=== PATIENT | female | born 1955 | race Caucasian/White ===

== ENCOUNTER → 2018-09-21 14:36 | Outpatient (CLI) | payer OTHER, SELFPAY | PROVIDERS: PCP Internal Medicine; Visit Provider Internal Medicine | DX: R00.2 Palpitations (principal) | CPT/HCPCS: 36415; 84443 ==

== ENCOUNTER → 2018-09-22 09:00 | Outpatient (CLI) | payer OTHER, SELFPAY | PROVIDERS: PCP Internal Medicine | DX: Z23 Encounter for immunization (principal) | CPT/HCPCS: 90471; 90686 ==

== ENCOUNTER 2018-10-13 13:45 | Outpatient (RCR) | payer OTHER, SELFPAY ==
--- NOTE | 2018-09-18 13:45 | PT.OPPOC ---
Current Diagnoses Pain in unspecified knee (09/28/18) Provider Visit Care Team Role Provider Type RENEA Hills Attending Provider Advanced Technical Sales Director Specialty: Family Practice Address: [address] [place] [address], [id number] Email: [email or web address] Plan Of Care PT-OP-T Assessment and Plan Start: 09/18/18 19:31 Freq: Status: Active Protocol: Document 09/18/18 13:45 DLM Physical Therapy Assessment Rehab Potential Rehabilitation Potential Good Evaluation Complexity Number of Personal Factors/Comorbidities 1-2 Number of Body Systems Impaired 4 or More Clinical Presentation at Evaluation Evolving Impairments Impairments Activity Tolerance Functional Activities Pain Posture ROM Soft Tissue Mobility Strength Other Concerns Barriers to Rehabilitation hx of right knee pain Goals Four Impairment Unable to do HEP due to pain Short Term Goal (STG) She will tolerate light HEP to manage her pain STG Duration 2 weeks Group Home Goal (LTG) She will return to a full HEP including walking without increased pain LTG Duration 6 weeks Three Impairment Decreased right LE strength with pain Short Term Goal (STG) Increase right LE strength to at least 4+/5 STG Duration 3 weeks Group Home Goal (LTG) Increase right LE strength to 5/5 LTG Duration 6 weeks Two Impairment Limited trunk AROM with pain Short Term Goal (STG) Tolerate trunk AROM WNL STG Duration 3 weeks Casino Slot Supervisor Goal (LTG) Trunk AROM WNL without pain for normal bending and reaching LTG Duration 6 weeks One Impairment Pain in low back and right LE, 6/10 Short Term Goal (STG) Resolve radicular pain in right LE STG Duration 3 weeks Casino Slot Supervisor Goal (LTG) Resolve back pain LTG Duration 6 weeks Assessment Summary Assessment Maria Luisa had a flare-up of her back pain and right LE radicular symptoms when she tried to increase her activities in May. The pain is limiting her activities and interfering with her sleep. Clinically she has positive disc symptoms. She also presents with altered trunk alignment and possible muscle strain. She is a good candidate for physical therapy . Physical Therapy Plan Frequency and Duration Frequency of Treatment 2x/Week Duration of Treatment 6 weeks Plan of Care Start Date 09/18/18 Plan of Care End Date 11/29/18 Therapeutic Interventions Therapeutic Interventions Aquatic Therapy Home Exercise Program Manual Therapy Patient/Caregiver Education Self-Care/Home Management Soft Tissue Mobilization Taping Therapeutic Activities Therapeutic Exercises Modalities Cold Pack/Ice Massage Electric Stimulation Hot Packs Ultrasound Next Visit Focus/Plan Next Note Type Treatment Note Next Visit Plan start exercises with extension emphasis and core stabalization, manual therapy Plan of Care Dates Plan of Care Start Date 09/18/18 Plan of Care End Date 11/29/18 Please Sign and Return: I have reviewed this Plan of Care and certify that the skilled therapy services above are required to meet the patient?s needs. Physician Signature Date Printed Name and Credentials Clinical Instructor Signature Printed Name and Credentials
--- NOTE | 2018-09-18 13:45 | PT.OIE ---
Current Diagnoses Pain in unspecified knee (09/28/18) Past Medical History (Last Updated 09/20/18 @ 20:34 by Tara Panda) Duodenal ulcer (Chronic ~1999) Fibroids (Chronic ~2002) Hyperlipidemia (Chronic ~1999) Low back pain (Chronic ~2014) Rosacea (Chronic ~1994) Skin cancer, basal cell (Chronic ~2012) Vision disorder (Chronic) Chicken pox (Resolved) Fractures (Resolved) Measles (Resolved) Mumps (Resolved) Seasonal allergies (Resolved) Shingles (Resolved) Past Surgical History (Last Updated 09/20/18 @ 20:34 by Tara Panda) Anesthesia (Resolved) History of third molar tooth extraction (~1972) History of tonsillectomy (~1961) Status post laparoscopic supracervical hysterectomy (~2002) Provider Visit Care Team Role Provider Type RENEA Hills Attending Provider Advanced Food General Manager Specialty: Family Practice Address: [address] [place] [address] Email: [email or web address] Physical Therapy Initial Evaluation PT-OP-A Visit Information Start: 09/18/18 19:31 Freq: Status: Active Protocol: Document 09/18/18 13:45 DLM Out-Patient Physical Therapy Visit Information Visit Information Visit Type Initial Evaluation Visit Start Time 13:45 Visit Stop Time 14:30 Total Visit Minutes 45 Visit Number 1 Number of SCHEDULE MANAGER Visits 0 Evaluation Information Evaluation Date 09/18/18 PT-OP-B Current Condition Start: 09/18/18 19:31 Freq: Status: Active Protocol: Document 09/18/18 13:45 DLM Current Condition History of Current Condition Onset Date May 2018 Current Complaints Pain in low back and right buttock History of Current Condition She reports her back pain had been doing well since ending Physical Therapy. She attempted to increase her activity and be more aggressive with her exercises at home in May and had a flare-up of her pain. She has not been able to get her pain under control on her own at home. She had to stop her HEP due to the pain. 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 Function- Recreation/Hobbies exercises, walks on treatmill, sewing Current Functional Impairments (Reported) Functional Limitations- ADL's Independent with pain Functional Limitations- Mobility/Gait Independent with pain, the pain limits her distances Functional Limitations- Work/School able to work normal hours but increased pain Functional Limitations- Recreation/ she stopped exercising due to Hobbies her pain Personal Factors Other Personal Factors That May Effect history of knee pain Therapy/Recovery history of GI issues that prevent her from taking most NSAIDS PT-OP-C Subjective Start: 09/18/18 19:31 Freq: Status: Active Protocol: Document 09/18/18 13:45 DLM Patient Questionnaires Lower Extremity Functional Scale LEFS Score 56 LEFS Impairment 20 to 39% Impaired (Score 48- 62) OP-PT Pain Assessment Pain Assessment Grid Paper Pain Assessment Grid Completed Yes Location Right Posterior Hip Intensity 6 Scale Used Numeric (1 - 10) Description Aching Radiating Frequency Daily Pain Duration varies with activity Radiating Location down right LE as low as ankle Pain Aggravating Factors Position Activity Exercise Standing Walking Stair Climbing Bending Pain Alleviating Factors Cold Medication Sitting Changing Position Lower Posterior Back Intensity 4 Scale Used Numeric (1 - 10) Description Aching Frequency Daily Pain Duration varies Radiating Location into right LE as low as her ankle Pain Aggravating Factors Position Standing Walking Bending Pain Alleviating Factors Cold Medication Sitting Changing Position Home Pain Medication Use Pain Medications Used Yes: Tylenol, unable to take most NSAIDS Home Pain Medication Frequency daily Pain Behaviors Pain Behaviors Guarding Wincing Comments Pain Comments has been using tennis ball to help right buttock pain PT-OP-G Mobility & Gait Start: 09/18/18 19:31 Freq: Status: Active Protocol: Document 09/18/18 13:45 DLM OP Mobility Evaluation Bed Mobility Rolling Independent Supine to and from Sit Independent Transfers Sit to Stand pain, independent OP Gait Assessment Gait Gait Assistance Required: Independent Assistive Devices Assistive Device None Gait Deviations General Gait Pattern Within Normal Limits Factors Limiting Gait Function Factors Limiting Gait Function Pain PT-OP-J Posture/Palpation/Skin Start: 09/18/18 19:31 Freq: Status: Active Protocol: Document 09/18/18 13:45 DLM Posture Evaluation Position Standing Evaluation View Posterior Thorax Posture Neutral L-Spine Posture Decreased Lordosis Pelvis Posture (L) Rotated Posterior (L) Iliac Crest Superior Weight Distribution Weight Shifted Left Ankle/Foot Posture (L) Neutral (R) Neutral Palpation Assessment Location lumbar paraspinals Palpation Findings Soft Tissue Tightness Palpation Details no tenderness, mild tightness gluteal area Palpation Findings Soft Tissue Tightness Tenderness Trigger Point Palpation Details pain center right glut, tightness left gluteal area right hamstring Palpation Findings Soft Tissue Tightness Tenderness Trigger Point PT-OP-K Range of Motion Start: 09/18/18 19:31 Freq: Status: Active Protocol: Document 09/18/18 13:45 DLM Lumbar Spine Range of Motion Lumbar Spine Active Percentage Testing Position standing Flexion 100 Extension 100 Rotation Left 100 Rotation Right 100 Lateral Flexion Left 50 Lateral Flexion Right 75 ROM Limitations Soft Tissue Tightness Pain Comments flexion with return to upright : increase right radicular pain trunk ext: decreased pain lateral flexion: pain to left rotation: increased right LE pain with moving to left Hip Goniometric Range of Motion Hip ROM Limitations Hip ROM Limitations Soft Tissue Tightness Comments right hamstring tightness with straight leg raise PT-OP-L Special Tests Start: 09/18/18 19:31 Freq: Status: Active Protocol: Document 09/18/18 13:45 DLM Special Tests Lumbar Spine Special Tests Straight Leg Raise Test Results negative Comments right HS tightness more than left Slump Test Results increased right LE radicular pain PT-OP-M Strength Start: 09/18/18 19:31 Freq: Status: Active Protocol: Document 09/18/18 13:45 DLM Hip Strength Hip Manual Muscle Testing Right Flexion (L2) 4 Good Extension (S1) 4+ Good+ Abduction 4+ Good+ Adduction 4+ Good+ External Rotation 4+ Good+ Internal Rotation 4+ Good+ Reason Not Measured Pain Comments unstable pelvis with resisted hip flexion in sitting, posterior pelvic/lumbar rotation Left Flexion (L2) 5 Normal Extension (S1) 5 Normal Abduction 5 Normal Adduction 5 Normal External Rotation 5 Normal Internal Rotation 5 Normal Knee Strength Knee Manual Muscle Testing Right Flexion (S2) 5 Normal Extension (L3) 5 Normal Left Flexion (S2) 5 Normal Extension (L3) 5 Normal Ankle/Foot Strength Ankle and Foot Manual Muscle Testing Right Dorsiflexion (L4) 5 Normal Plantarflexion (S1) 5 Normal Left Dorsiflexion (L4) 5 Normal Plantarflexion (S1) 5 Normal Toe Strength Toe Manual Muscle Testing Right Great Toe Extension 5 Normal Left Great Toe Extension 5 Normal PT-OP-Q Treatments Start: 09/18/18 19:31 Freq: Status: Active Protocol: Document 09/18/18 13:45 DLM Self-Care/Home Management Treatment Education Other Education reviewed HEP, she has stopped her prior ex due to pain, to resume hamstring stretch in single limb long sitting and prone lying, discussed possible need for anti-inflamm medication to help manage her pain (pt will discuss with her physician) PT-OP-T Assessment and Plan Start: 09/18/18 19:31 Freq: Status: Active Protocol: Document 09/18/18 13:45 DLM Physical Therapy Assessment Rehab Potential Rehabilitation Potential Good Evaluation Complexity Number of Personal Factors/Comorbidities 1-2 Number of Body Systems Impaired 4 or More Clinical Presentation at Evaluation Evolving Impairments Impairments Activity Tolerance Functional Activities Pain Posture ROM Soft Tissue Mobility Strength Other Concerns Barriers to Rehabilitation hx of right knee pain Goals Four Impairment Unable to do HEP due to pain Short Term Goal (STG) She will tolerate light HEP to manage her pain STG Duration 2 weeks Home Health Clinical Liaison Goal (LTG) She will return to a full HEP including walking without increased pain LTG Duration 6 weeks Three Impairment Decreased right LE strength with pain Short Term Goal (STG) Increase right LE strength to at least 4+/5 STG Duration 3 weeks Home Health Clinical Liaison Goal (LTG) Increase right LE strength to 5/5 LTG Duration 6 weeks Two Impairment Limited trunk AROM with pain Short Term Goal (STG) Tolerate trunk AROM WNL STG Duration 3 weeks Home Health Clinical Liaison Goal (LTG) Trunk AROM WNL without pain for normal bending and reaching LTG Duration 6 weeks One Impairment Pain in low back and right LE, 6/10 Short Term Goal (STG) Resolve radicular pain in right LE STG Duration 3 weeks Senior Living Goal (LTG) Resolve back pain LTG Duration 6 weeks Assessment Summary Assessment Maria Luisa had a flare-up of her back pain and right LE radicular symptoms when she tried to increase her activities in May. The pain is limiting her activities and interfering with her sleep. Clinically she has positive disc symptoms. She also presents with altered trunk alignment and possible muscle strain. She is a good candidate for physical therapy . Physical Therapy Plan Frequency and Duration Frequency of Treatment 2x/Week Duration of Treatment 6 weeks Plan of Care Start Date 09/18/18 Plan of Care End Date 11/29/18 Therapeutic Interventions Therapeutic Interventions Aquatic Therapy Home Exercise Program Manual Therapy Patient/Caregiver Education Self-Care/Home Management Soft Tissue Mobilization Taping Therapeutic Activities Therapeutic Exercises Modalities Cold Pack/Ice Massage Electric Stimulation Hot Packs Ultrasound Next Visit Focus/Plan Next Note Type Treatment Note Next Visit Plan start exercises with extension emphasis and core stabilization, manual therapy
--- NOTE | 2018-09-22 13:45 | PT.OTN ---
Current Diagnoses Pain in unspecified knee (09/28/18) Physical Therapy Treatment Note PT-OP-A Visit Information Start: 09/18/18 19:31 Freq: Status: Active Protocol: Document 09/22/18 13:45 DLM Out-Patient Physical Therapy Visit Information Visit Information Visit Type Treatment Note Visit Start Time 13:45 Visit Stop Time 14:45 Total Visit Minutes 60 Visit Number 2/12 Number of GALLEY HAND Visits 0 Evaluation Information Evaluation Date 09/18/18 PT-OP-B Current Condition Start: 09/18/18 19:31 Freq: Status: Active Protocol: Document 09/18/18 13:45 DLM Current Condition History of Current Condition Onset Date May 2018 Current Complaints Pain in low back and right buttock History of Current Condition She reports her back pain had been doing well since ending Physical Therapy. She attempted to increase her activity and be more aggressive with her exercises at home in May and had a flare-up of her pain. She has not been able to get her pain under control on her own at home. She had to stop her HEP due to the pain. 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 Function- Recreation/Hobbies exercises, walks on treatmill, sewing Current Functional Impairments (Reported) Functional Limitations- ADL's Independent with pain Functional Limitations- Mobility/Gait Independent with pain, the pain limits her distances Functional Limitations- Work/School able to work normal hours but increased pain Functional Limitations- Recreation/ she stopped exercising due to Hobbies her pain Personal Factors Other Personal Factors That May Effect history of knee pain Therapy/Recovery history of GI issues that prevent her from taking most NSAIDS PT-OP-C Subjective Start: 09/18/18 19:31 Freq: Status: Active Protocol: Document 09/25/18 13:45 DLM OP-PT Subjective Patient Comments Patient Comments Decreased pain since last visit, 01/10 pain Patient Reported Progress Improving OP-PT Pain Assessment Pain Behaviors Pain Behaviors Guarding Holding Area PT-OP-G Mobility & Gait Start: 09/18/18 19:31 Freq: Status: Active Protocol: Document 09/18/18 13:45 DLM OP Mobility Evaluation Bed Mobility Rolling Independent Supine to and from Sit Independent Transfers Sit to Stand pain, independent OP Gait Assessment Gait Gait Assistance Required: Independent Assistive Devices Assistive Device None Gait Deviations General Gait Pattern Within Normal Limits Factors Limiting Gait Function Factors Limiting Gait Function Pain PT-OP-J Posture/Palpation/Skin Start: 09/18/18 19:31 Freq: Status: Active Protocol: Document 09/18/18 13:45 DLM Posture Evaluation Position Standing Evaluation View Posterior Thorax Posture Neutral L-Spine Posture Decreased Lordosis Pelvis Posture (L) Rotated Posterior (L) Iliac Crest Superior Weight Distribution Weight Shifted Left Ankle/Foot Posture (L) Neutral (R) Neutral Palpation Assessment Location lumbar paraspinals Palpation Findings Soft Tissue Tightness Palpation Details no tenderness, mild tightness gluteal area Palpation Findings Soft Tissue Tightness Tenderness Trigger Point Palpation Details pain center right glut, tightness left gluteal area right hamstring Palpation Findings Soft Tissue Tightness Tenderness Trigger Point PT-OP-K Range of Motion Start: 09/18/18 19:31 Freq: Status: Active Protocol: Document 09/18/18 13:45 DLM Lumbar Spine Range of Motion Lumbar Spine Active Percentage Testing Position standing Flexion 100 Extension 100 Rotation Left 100 Rotation Right 100 Lateral Flexion Left 50 Lateral Flexion Right 75 ROM Limitations Soft Tissue Tightness Pain Comments flexion with return to upright : increase right radicular pain trunk ext: decreased pain lateral flexion: pain to left rotation: increased right LE pain with moving to left Hip Goniometric Range of Motion Hip ROM Limitations Hip ROM Limitations Soft Tissue Tightness Comments right hamstring tightness with straight leg raise PT-OP-L Special Tests Start: 09/18/18 19:31 Freq: Status: Active Protocol: Document 09/18/18 13:45 DLM Special Tests Lumbar Spine Special Tests Straight Leg Raise Test Results negative Comments right HS tightness more than left Slump Test Results increased right LE radicular pain PT-OP-M Strength Start: 09/18/18 19:31 Freq: Status: Active Protocol: Document 09/18/18 13:45 DLM Hip Strength Hip Manual Muscle Testing Right Flexion (L2) 4 Good Extension (S1) 4+ Good+ Abduction 4+ Good+ Adduction 4+ Good+ External Rotation 4+ Good+ Internal Rotation 4+ Good+ Reason Not Measured Pain Comments unstable pelvis with resisted hip flexion in sitting, posterior pelvic/lumbar rotation Left Flexion (L2) 5 Normal Extension (S1) 5 Normal Abduction 5 Normal Adduction 5 Normal External Rotation 5 Normal Internal Rotation 5 Normal Knee Strength Knee Manual Muscle Testing Right Flexion (S2) 5 Normal Extension (L3) 5 Normal Left Flexion (S2) 5 Normal Extension (L3) 5 Normal Ankle/Foot Strength Ankle and Foot Manual Muscle Testing Right Dorsiflexion (L4) 5 Normal Plantarflexion (S1) 5 Normal Left Dorsiflexion (L4) 5 Normal Plantarflexion (S1) 5 Normal Toe Strength Toe Manual Muscle Testing Right Great Toe Extension 5 Normal Left Great Toe Extension 5 Normal PT-OP-Q Treatments Start: 09/18/18 19:31 Freq: Status: Active Protocol: Document 09/25/18 13:45 DLM Therapeutic Exercises Supine Exercises 3 Supine Exercise Name bridging with exercise band around knees Comments stopped due to increased pain 2 Supine Exercise Name Hooklying hip abduction Bilateral L2 exercise band 10 reps 1 Hooklying hip adduction with pillow 10 reps Prone Exercises 1 Prone quad stretch with manual assist Bilateral Sidelying Exercises 1 Sidelying Exercise Name Clamshells Side bilateral Reps/Minutes 5 reps Comments stopped due to pain Manual Therapy Treatment Soft Tissue Mobilization 3 Body Location hamstring Mobilization Type Cross-Friction Strumming Sustained Pressure Intensity/Depth Moderate Body Position Prone Comments left tighter than right this visit 2 Body Location bilateral gluteal area Mobilization Type Strumming Sustained Pressure Trigger Point Release Intensity/Depth Moderate Body Position Prone Comments left tighter than right 1 Body Location lumbar paraspinals Mobilization Type Strumming Sustained Pressure Intensity/Depth Moderate Body Position Prone Self-Care/Home Management Treatment Education Patient Education Home Exercise Program PT-OP-R Modalities Start: 09/18/18 19:31 Freq: Status: Active Protocol: Document 09/25/18 13:45 DLM (Rec: 09/28/18 17:45 DLM [id number]) Electric Stimulation Electric Stimulation Interferential Current (IFC) Body Location lumbosacral Duration (Minutes) 15 Patient Position Prone Combined With Heat/Cold Cold Pack PT-OP-T Assessment and Plan Start: 09/18/18 19:31 Freq: Status: Active Protocol: Document 09/25/18 13:45 DLM (Rec: 09/28/18 17:45 DLM [id number]) Physical Therapy Assessment Impairments Impairments Activity Tolerance Functional Activities Pain Posture ROM Soft Tissue Mobility Strength Goals Four Impairment Unable to do HEP due to pain Short Term Goal (STG) She will tolerate light HEP to manage her pain STG Duration 2 weeks Rolling Chair Pusher Goal (LTG) She will return to a full HEP including walking without increased pain LTG Duration 6 weeks Three Impairment Decreased right LE strength with pain Short Term Goal (STG) Increase right LE strength to at least 4+/5 STG Duration 3 weeks Rolling Chair Pusher Goal (LTG) Increase right LE strength to 5/5 LTG Duration 6 weeks Two Impairment Limited trunk AROM with pain Short Term Goal (STG) Tolerate trunk AROM WNL STG Duration 3 weeks Rolling Chair Pusher Goal (LTG) Trunk AROM WNL without pain for normal bending and reaching LTG Duration 6 weeks One Impairment Pain in low back and right LE, 6/10 Short Term Goal (STG) Resolve radicular pain in right LE STG Duration 3 weeks Penitentiary Goal (LTG) Resolve back pain LTG Duration 6 weeks Progress Towards Goals Progress Towards Goals Progressing Toward Goals Assessment Summary Assessment She reports decreased pain over-all. It continues to be easy to increase her pain with exercises. Will continue to modify her exercises to manage her pain. Good response to Estim. Physical Therapy Plan Frequency and Duration Frequency of Treatment 2x/Week Duration of Treatment 6 weeks Plan of Care Start Date 09/18/18 Plan of Care End Date 11/29/18 Therapeutic Interventions Therapeutic Interventions Aquatic Therapy Home Exercise Program Manual Therapy Patient/Caregiver Education Self-Care/Home Management Soft Tissue Mobilization Taping Therapeutic Activities Therapeutic Exercises Modalities Cold Pack/Ice Massage Electric Stimulation Hot Packs Ultrasound Next Visit Focus/Plan Next Note Type Treatment Note Next Visit Plan continue exercise modification to advance to strengthening ex without increase pain
--- NOTE | 2018-09-25 13:45 | PT.OTN ---
Current Diagnoses Pain in unspecified knee (09/28/18) Physical Therapy Treatment Note PT-OP-A Visit Information Start: 09/18/18 19:31 Freq: Status: Active Protocol: Document 09/25/18 13:45 DLM Out-Patient Physical Therapy Visit Information Visit Information Visit Type Treatment Note Visit Start Time 13:45 Visit Stop Time 14:40 Total Visit Minutes 55 Visit Number 3/12 Number of [employer]ION[employer] ENGINEER Visits 0 Evaluation Information Evaluation Date 09/18/18 PT-OP-B Current Condition Start: 09/18/18 19:31 Freq: Status: Active Protocol: Document 09/18/18 13:45 DLM Current Condition History of Current Condition Onset Date May 2018 Current Complaints Pain in low back and right buttock History of Current Condition She reports her back pain had been doing well since ending Physical Therapy. She attempted to increase her activity and be more aggressive with her exercises at home in May and had a flare-up of her pain. She has not been able to get her pain under control on her own at home. She had to stop her HEP due to the pain. 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 Function- Recreation/Hobbies exercises, walks on treatmill, sewing Current Functional Impairments (Reported) Functional Limitations- ADL's Independent with pain Functional Limitations- Mobility/Gait Independent with pain, the pain limits her distances Functional Limitations- Work/School able to work normal hours but increased pain Functional Limitations- Recreation/ she stopped exercising due to Hobbies her pain Personal Factors Other Personal Factors That May Effect history of knee pain Therapy/Recovery history of GI issues that prevent her from taking most NSAIDS PT-OP-C Subjective Start: 09/18/18 19:31 Freq: Status: Active Protocol: Document 09/25/18 13:45 DLM OP-PT Subjective Patient Comments Patient Comments Decreased pain after Estim and last treatment, taking Celebrex for her pain Patient Reported Progress Improving OP-PT Pain Assessment Pain Behaviors Pain Behaviors Guarding Holding Area PT-OP-G Mobility & Gait Start: 09/18/18 19:31 Freq: Status: Active Protocol: Document 09/18/18 13:45 DLM OP Mobility Evaluation Bed Mobility Rolling Independent Supine to and from Sit Independent Transfers Sit to Stand pain, independent OP Gait Assessment Gait Gait Assistance Required: Independent Assistive Devices Assistive Device None Gait Deviations General Gait Pattern Within Normal Limits Factors Limiting Gait Function Factors Limiting Gait Function Pain PT-OP-J Posture/Palpation/Skin Start: 09/18/18 19:31 Freq: Status: Active Protocol: Document 09/18/18 13:45 DLM Posture Evaluation Position Standing Evaluation View Posterior Thorax Posture Neutral L-Spine Posture Decreased Lordosis Pelvis Posture (L) Rotated Posterior (L) Iliac Crest Superior Weight Distribution Weight Shifted Left Ankle/Foot Posture (L) Neutral (R) Neutral Palpation Assessment Location lumbar paraspinals Palpation Findings Soft Tissue Tightness Palpation Details no tenderness, mild tightness gluteal area Palpation Findings Soft Tissue Tightness Tenderness Trigger Point Palpation Details pain center right glut, tightness left gluteal area right hamstring Palpation Findings Soft Tissue Tightness Tenderness Trigger Point PT-OP-K Range of Motion Start: 09/18/18 19:31 Freq: Status: Active Protocol: Document 09/18/18 13:45 DLM Lumbar Spine Range of Motion Lumbar Spine Active Percentage Testing Position standing Flexion 100 Extension 100 Rotation Left 100 Rotation Right 100 Lateral Flexion Left 50 Lateral Flexion Right 75 ROM Limitations Soft Tissue Tightness Pain Comments flexion with return to upright : increase right radicular pain trunk ext: decreased pain lateral flexion: pain to left rotation: increased right LE pain with moving to left Hip Goniometric Range of Motion Hip ROM Limitations Hip ROM Limitations Soft Tissue Tightness Comments right hamstring tightness with straight leg raise PT-OP-L Special Tests Start: 09/18/18 19:31 Freq: Status: Active Protocol: Document 09/18/18 13:45 DLM Special Tests Lumbar Spine Special Tests Straight Leg Raise Test Results negative Comments right HS tightness more than left Slump Test Results increased right LE radicular pain PT-OP-M Strength Start: 09/18/18 19:31 Freq: Status: Active Protocol: Document 09/18/18 13:45 DLM Hip Strength Hip Manual Muscle Testing Right Flexion (L2) 4 Good Extension (S1) 4+ Good+ Abduction 4+ Good+ Adduction 4+ Good+ External Rotation 4+ Good+ Internal Rotation 4+ Good+ Reason Not Measured Pain Comments unstable pelvis with resisted hip flexion in sitting, posterior pelvic/lumbar rotation Left Flexion (L2) 5 Normal Extension (S1) 5 Normal Abduction 5 Normal Adduction 5 Normal External Rotation 5 Normal Internal Rotation 5 Normal Knee Strength Knee Manual Muscle Testing Right Flexion (S2) 5 Normal Extension (L3) 5 Normal Left Flexion (S2) 5 Normal Extension (L3) 5 Normal Ankle/Foot Strength Ankle and Foot Manual Muscle Testing Right Dorsiflexion (L4) 5 Normal Plantarflexion (S1) 5 Normal Left Dorsiflexion (L4) 5 Normal Plantarflexion (S1) 5 Normal Toe Strength Toe Manual Muscle Testing Right Great Toe Extension 5 Normal Left Great Toe Extension 5 Normal PT-OP-Q Treatments Start: 09/18/18 19:31 Freq: Status: Active Protocol: Document 09/25/18 13:45 DLM Therapeutic Exercises Supine Exercises 4 Supine Exercise Name single knee to chest stetch Side bilateral Reps/Minutes 5 reps each side 3 Supine Exercise Name bridging Comments stopped due to increased pain Prone Exercises 2 Prone Exercise Name hip extension Side bilateral Reps/Minutes 10 reps Comments added core stabalization to prevent compensation with left hip ext Sidelying Exercises 1 Sidelying Exercise Name Clamshells Side bilateral Reps/Minutes 5 reps Comments increased right LE pain with left clamshell Sitting Exercises 1 Sitting Exercise Name hamstring stretch, single limb long sitting Side bilateral Reps/Minutes 3 reps each side Comments seated edge of bed Manual Therapy Treatment Soft Tissue Mobilization 3 Body Location hamstring Mobilization Type Cross-Friction Strumming Sustained Pressure Intensity/Depth Moderate Body Position Prone Comments left tighter than right this visit 2 Body Location bilateral gluteal area Mobilization Type Strumming Sustained Pressure Trigger Point Release Intensity/Depth Moderate Body Position Prone Comments left tighter than right 1 Body Location lumbar paraspinals Mobilization Type Strumming Sustained Pressure Intensity/Depth Moderate Body Position Prone Manual Techniques 1 Type Muscle energy for right ant rotated pelvis Body Position Supine Reps/Duration 3 reps Self-Care/Home Management Treatment Education Patient Education Home Exercise Program Pain Management PT-OP-R Modalities Start: 09/18/18 19:31 Freq: Status: Active Protocol: Document 09/25/18 13:45 DLM Electric Stimulation Electric Stimulation Interferential Current (IFC) Body Location lumbosacral Duration (Minutes) 15 Patient Position Prone Combined With Heat/Cold Cold Pack PT-OP-T Assessment and Plan Start: 09/18/18 19:31 Freq: Status: Active Protocol: Document 09/25/18 13:45 DLM Physical Therapy Assessment Impairments Impairments Activity Tolerance Functional Activities Pain Posture ROM Soft Tissue Mobility Strength Goals Four Impairment Unable to do HEP due to pain Short Term Goal (STG) She will tolerate light HEP to manage her pain STG Duration 2 weeks [employer]e Goal (LTG) She will return to a full HEP including walking without increased pain LTG Duration 6 weeks Three Impairment Decreased right LE strength with pain Short Term Goal (STG) Increase right LE strength to at least 4+/5 STG Duration 3 weeks Penitentiary Goal (LTG) Increase right LE strength to 5/5 LTG Duration 6 weeks Two Impairment Limited trunk AROM with pain Short Term Goal (STG) Tolerate trunk AROM WNL STG Duration 3 weeks Penitentiary Goal (LTG) Trunk AROM WNL without pain for normal bending and reaching LTG Duration 6 weeks One Impairment Pain in low back and right LE, 6/10 Short Term Goal (STG) Resolve radicular pain in right LE STG Duration 3 weeks Penitentiary Goal (LTG) Resolve back pain LTG Duration 6 weeks Progress Towards Goals Progress Towards Goals Progressing Toward Goals Assessment Summary Assessment She reports decreased pain over-all. It continues to be easy to increase her pain with exercises. Core instability noted today with left LE movements. Good response to Estim for pain management. Physical Therapy Plan Frequency and Duration Frequency of Treatment 2x/Week Duration of Treatment 6 weeks Plan of Care Start Date 09/18/18 Plan of Care End Date 11/29/18 Therapeutic Interventions Therapeutic Interventions Aquatic Therapy Home Exercise Program Manual Therapy Patient/Caregiver Education Self-Care/Home Management Soft Tissue Mobilization Taping Therapeutic Activities Therapeutic Exercises Modalities Cold Pack/Ice Massage Electric Stimulation Hot Packs Ultrasound Next Visit Focus/Plan Next Note Type Treatment Note Next Visit Plan continue exercise modification to advance to strengthening ex without increase pain
--- NOTE | 2018-09-28 13:50 | PT.OTN ---
Current Diagnoses Pain in unspecified knee (09/28/18) Physical Therapy Treatment Note PT-OP-A Visit Information Start: 09/18/18 19:31 Freq: Status: Active Protocol: Document 09/28/18 13:50 DLM (Rec: 09/28/18 18:08 DLM [id number]) Out-Patient Physical Therapy Visit Information Visit Information Visit Type Treatment Note Visit Start Time 13:47 Visit Stop Time 14:47 Total Visit Minutes 60 Visit Number 4/12 Number of [employer] OR [employer]BSERV[employer] Visits 0 Evaluation Information Evaluation Date 09/18/18 PT-OP-B Current Condition Start: 09/18/18 19:31 Freq: Status: Active Protocol: Document 09/18/18 13:45 DLM Current Condition History of Current Condition Onset Date May 2018 Current Complaints Pain in low back and right buttock History of Current Condition She reports her back pain had been doing well since ending Physical Therapy. She attempted to increase her activity and be more aggressive with her exercises at home in May and had a flare-up of her pain. She has not been able to get her pain under control on her own at home. She had to stop her HEP due to the pain. 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 Function- Recreation/Hobbies exercises, walks on treatmill, sewing Current Functional Impairments (Reported) Functional Limitations- ADL's Independent with pain Functional Limitations- Mobility/Gait Independent with pain, the pain limits her distances Functional Limitations- Work/School able to work normal hours but increased pain Functional Limitations- Recreation/ she stopped exercising due to Hobbies her pain Personal Factors Other Personal Factors That May Effect history of knee pain Therapy/Recovery history of GI issues that prevent her from taking most NSAIDS PT-OP-C Subjective Start: 09/18/18 19:31 Freq: Status: Active Protocol: Document 09/28/18 13:50 DLM OP-PT Subjective Patient Comments Patient Comments The estim helps her pain. She is sleeping better. She has no right LE pain today. She is having spasms and pain in right mid-back today. Patient Reported Progress Improving OP-PT Pain Assessment Location Right Posterior Hip Intensity 0 Scale Used Numeric (1 - 10) PT-OP-G Mobility & Gait Start: 09/18/18 19:31 Freq: Status: Active Protocol: Document 09/18/18 13:45 DLM OP Mobility Evaluation Bed Mobility Rolling Independent Supine to and from Sit Independent Transfers Sit to Stand pain, independent OP Gait Assessment Gait Gait Assistance Required: Independent Assistive Devices Assistive Device None Gait Deviations General Gait Pattern Within Normal Limits Factors Limiting Gait Function Factors Limiting Gait Function Pain PT-OP-J Posture/Palpation/Skin Start: 09/18/18 19:31 Freq: Status: Active Protocol: Document 09/18/18 13:45 DLM Posture Evaluation Position Standing Evaluation View Posterior Thorax Posture Neutral L-Spine Posture Decreased Lordosis Pelvis Posture (L) Rotated Posterior (L) Iliac Crest Superior Weight Distribution Weight Shifted Left Ankle/Foot Posture (L) Neutral (R) Neutral Palpation Assessment Location lumbar paraspinals Palpation Findings Soft Tissue Tightness Palpation Details no tenderness, mild tightness gluteal area Palpation Findings Soft Tissue Tightness Tenderness Trigger Point Palpation Details pain center right glut, tightness left gluteal area right hamstring Palpation Findings Soft Tissue Tightness Tenderness Trigger Point PT-OP-K Range of Motion Start: 09/18/18 19:31 Freq: Status: Active Protocol: Document 09/18/18 13:45 DLM Lumbar Spine Range of Motion Lumbar Spine Active Percentage Testing Position standing Flexion 100 Extension 100 Rotation Left 100 Rotation Right 100 Lateral Flexion Left 50 Lateral Flexion Right 75 ROM Limitations Soft Tissue Tightness Pain Comments flexion with return to upright : increase right radicular pain trunk ext: decreased pain lateral flexion: pain to left rotation: increased right LE pain with moving to left Hip Goniometric Range of Motion Hip ROM Limitations Hip ROM Limitations Soft Tissue Tightness Comments right hamstring tightness with straight leg raise PT-OP-L Special Tests Start: 09/18/18 19:31 Freq: Status: Active Protocol: Document 09/18/18 13:45 DLM Special Tests Lumbar Spine Special Tests Straight Leg Raise Test Results negative Comments right HS tightness more than left Slump Test Results increased right LE radicular pain PT-OP-M Strength Start: 09/18/18 19:31 Freq: Status: Active Protocol: Document 09/18/18 13:45 DLM Hip Strength Hip Manual Muscle Testing Right Flexion (L2) 4 Good Extension (S1) 4+ Good+ Abduction 4+ Good+ Adduction 4+ Good+ External Rotation 4+ Good+ Internal Rotation 4+ Good+ Reason Not Measured Pain Comments unstable pelvis with resisted hip flexion in sitting, posterior pelvic/lumbar rotation Left Flexion (L2) 5 Normal Extension (S1) 5 Normal Abduction 5 Normal Adduction 5 Normal External Rotation 5 Normal Internal Rotation 5 Normal Knee Strength Knee Manual Muscle Testing Right Flexion (S2) 5 Normal Extension (L3) 5 Normal Left Flexion (S2) 5 Normal Extension (L3) 5 Normal Ankle/Foot Strength Ankle and Foot Manual Muscle Testing Right Dorsiflexion (L4) 5 Normal Plantarflexion (S1) 5 Normal Left Dorsiflexion (L4) 5 Normal Plantarflexion (S1) 5 Normal Toe Strength Toe Manual Muscle Testing Right Great Toe Extension 5 Normal Left Great Toe Extension 5 Normal PT-OP-Q Treatments Start: 09/18/18 19:31 Freq: Status: Active Protocol: Document 09/28/18 13:50 DLM Cardio Equipment Recumbent Elliptical (Biodex) Duration (Minutes) 10 Resistance 2 Seat Position 8 Other no increase in pain Therapeutic Exercises Supine Exercises 6 Supine Exercise Name Hooklying, TVA with knee lifts Side bilateral Reps/Minutes 10 reps Comments up/up, down/down 5 Supine Exercise Name foam roll postural stretch Comments decreased her mid-back pain 4 Supine Exercise Name single knee to chest stetch Side bilateral Reps/Minutes 5 reps each side 2 Supine Exercise Name Hooklying hip Abduction Side bilateral Resistance L2 exercise band Reps/Minutes 10 reps 1 Supine Exercise Name Hooklying hip Adduction with pillow Side bilateral Resistance pillow Reps/Minutes 10 reps Self-Care/Home Management Treatment Education Patient Education Home Exercise Program Pain Management PT-OP-R Modalities Start: 09/18/18 19:31 Freq: Status: Active Protocol: Document 09/28/18 13:50 DLM Electric Stimulation Electric Stimulation Interferential Current (IFC) Body Location lumbosacral Duration (Minutes) 15 Patient Position Prone Combined With Heat/Cold Cold Pack PT-OP-T Assessment and Plan Start: 09/18/18 19:31 Freq: Status: Active Protocol: Document 09/28/18 13:50 DLM Physical Therapy Assessment Progress Towards Goals Progress Towards Goals Progressing Toward Goals Progress Comments no right LE radicular pain today Assessment Summary Assessment Her radicular symptoms continue to improve. Suspect her mid-back pain is related to changes in her trunk alignment. She tolerated exercises well today. Estim continues to help manage her pain. Physical Therapy Plan Frequency and Duration Frequency of Treatment 2x/Week Duration of Treatment 6 weeks Plan of Care Start Date 09/18/18 Plan of Care End Date 11/29/18 Therapeutic Interventions Therapeutic Interventions Home Exercise Program Manual Therapy Patient/Caregiver Education Self-Care/Home Management Soft Tissue Mobilization Taping Therapeutic Activities Therapeutic Exercises Modalities Cold Pack/Ice Massage Electric Stimulation Hot Packs Ultrasound Other Therapeutic Interventions pt does not want to try aquatic therapy so removed it from list of interventions Next Visit Focus/Plan Next Note Type Treatment Note Next Visit Plan continue to slow advance strengthening without radicular pain.
--- NOTE | 2018-10-01 14:54 | PT.OTN ---
Current Diagnoses Pain in unspecified knee (10/01/18) Physical Therapy Treatment Note PT-OP-A Visit Information Start: 09/18/18 19:31 Freq: Status: Active Protocol: Document 10/01/18 14:42 DLM (Rec: 10/01/18 14:54 DLM [id number]) Out-Patient Physical Therapy Visit Information Visit Information Visit Type Treatment Note Visit Start Time 13:45 Visit Stop Time 14:45 Total Visit Minutes 60 Visit Number 5/12 Number of MATERIAL SPREADER Visits 0 Evaluation Information Evaluation Date 09/18/18 PT-OP-B Current Condition Start: 09/18/18 19:31 Freq: Status: Active Protocol: Document 09/18/18 13:45 DLM (Rec: 09/25/18 09:41 DLM [id number]) Current Condition History of Current Condition Onset Date May 2018 Current Complaints Pain in low back and right buttock History of Current Condition She reports her back pain had been doing well since ending Physical Therapy. She attempted to increase her activity and be more aggressive with her exercises at home in May and had a flare-up of her pain. She has not been able to get her pain under control on her own at home. She had to stop her HEP due to the pain. 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 Function- Recreation/Hobbies exercises, walks on treatmill, sewing Current Functional Impairments (Reported) Functional Limitations- ADL's Independent with pain Functional Limitations- Mobility/Gait Independent with pain, the pain limits her distances Functional Limitations- Work/School able to work normal hours but increased pain Functional Limitations- Recreation/ she stopped exercising due to Hobbies her pain Personal Factors Other Personal Factors That May Effect history of knee pain Therapy/Recovery history of GI issues that prevent her from taking most NSAIDS PT-OP-C Subjective Start: 09/18/18 19:31 Freq: Status: Active Protocol: Document 10/01/18 14:42 DLM (Rec: 10/01/18 14:54 DLM [id number]) OP-PT Subjective Patient Comments Patient Comments Her pain has been better. She is no longer taking Celebrex. She was able to do some light moving projects with her friend without increased pain. Patient Reported Progress Improving OP-PT Pain Assessment Location Right Posterior Hip Intensity 0 Scale Used Numeric (1 - 10) Frequency Intermittent Lower Posterior Back Intensity 0 Scale Used Numeric (1 - 10) Frequency Intermittent PT-OP-G Mobility & Gait Start: 09/18/18 19:31 Freq: Status: Active Protocol: Document 09/18/18 13:45 DLM (Rec: 09/28/18 16:53 DLM [id number]) OP Mobility Evaluation Bed Mobility Rolling Independent Supine to and from Sit Independent Transfers Sit to Stand pain, independent OP Gait Assessment Gait Gait Assistance Required: Independent Assistive Devices Assistive Device None Gait Deviations General Gait Pattern Within Normal Limits Factors Limiting Gait Function Factors Limiting Gait Function Pain PT-OP-J Posture/Palpation/Skin Start: 09/18/18 19:31 Freq: Status: Active Protocol: Document 09/18/18 13:45 DLM (Rec: 09/28/18 16:53 DLM [id number]) Posture Evaluation Position Standing Evaluation View Posterior Thorax Posture Neutral L-Spine Posture Decreased Lordosis Pelvis Posture (L) Rotated Posterior (L) Iliac Crest Superior Weight Distribution Weight Shifted Left Ankle/Foot Posture (L) Neutral (R) Neutral Palpation Assessment Location lumbar paraspinals Palpation Findings Soft Tissue Tightness Palpation Details no tenderness, mild tightness gluteal area Palpation Findings Soft Tissue Tightness Tenderness Trigger Point Palpation Details pain center right glut, tightness left gluteal area right hamstring Palpation Findings Soft Tissue Tightness Tenderness Trigger Point PT-OP-K Range of Motion Start: 09/18/18 19:31 Freq: Status: Active Protocol: Document 09/18/18 13:45 DLM (Rec: 09/28/18 16:53 DLM [id number]) Lumbar Spine Range of Motion Lumbar Spine Active Percentage Testing Position standing Flexion 100 Extension 100 Rotation Left 100 Rotation Right 100 Lateral Flexion Left 50 Lateral Flexion Right 75 ROM Limitations Soft Tissue Tightness Pain Comments flexion with return to upright : increase right radicular pain trunk ext: decreased pain lateral flexion: pain to left rotation: increased right LE pain with moving to left Hip Goniometric Range of Motion Hip ROM Limitations Hip ROM Limitations Soft Tissue Tightness Comments right hamstring tightness with straight leg raise PT-OP-L Special Tests Start: 09/18/18 19:31 Freq: Status: Active Protocol: Document 09/18/18 13:45 DLM (Rec: 09/28/18 16:54 DLM [id number]) Special Tests Lumbar Spine Special Tests Straight Leg Raise Test Results negative Comments right HS tightness more than left Slump Test Results increased right LE radicular pain PT-OP-M Strength Start: 09/18/18 19:31 Freq: Status: Active Protocol: Document 09/18/18 13:45 DLM (Rec: 09/28/18 16:53 DLM [id number]) Hip Strength Hip Manual Muscle Testing Right Flexion (L2) 4 Good Extension (S1) 4+ Good+ Abduction 4+ Good+ Adduction 4+ Good+ External Rotation 4+ Good+ Internal Rotation 4+ Good+ Reason Not Measured Pain Comments unstable pelvis with resisted hip flexion in sitting, posterior pelvic/lumbar rotation Left Flexion (L2) 5 Normal Extension (S1) 5 Normal Abduction 5 Normal Adduction 5 Normal External Rotation 5 Normal Internal Rotation 5 Normal Knee Strength Knee Manual Muscle Testing Right Flexion (S2) 5 Normal Extension (L3) 5 Normal Left Flexion (S2) 5 Normal Extension (L3) 5 Normal Ankle/Foot Strength Ankle and Foot Manual Muscle Testing Right Dorsiflexion (L4) 5 Normal Plantarflexion (S1) 5 Normal Left Dorsiflexion (L4) 5 Normal Plantarflexion (S1) 5 Normal Toe Strength Toe Manual Muscle Testing Right Great Toe Extension 5 Normal Left Great Toe Extension 5 Normal PT-OP-Q Treatments Start: 09/18/18 19:31 Freq: Status: Active Protocol: Document 10/01/18 14:42 DLM (Rec: 10/01/18 14:54 DLM [id number]) Cardio Equipment Recumbent Elliptical (Biodex) Duration (Minutes) 5 Resistance 2 Seat Position 8 Other no increase in pain Therapeutic Exercises Supine Exercises 6 Supine Exercise Name Hooklying, TVA with knee lifts Side bilateral Reps/Minutes 10 reps Comments up/up, down/down 5 Supine Exercise Name foam roll postural stretch 4 Supine Exercise Name single knee to chest stetch Side bilateral Reps/Minutes 5 reps each side 2 Supine Exercise Name Hooklying hip Abduction Side bilateral Resistance L2 exercise band Reps/Minutes 10 reps 1 Supine Exercise Name Hooklying hip Adduction with pillow Side bilateral Resistance pillow Reps/Minutes 10 reps Comments mild soreness as she fatigues Prone Exercises 2 Prone Exercise Name hip extension Side bilateral Reps/Minutes 10 reps Comments small ROM with focus on preventing lumbar rotation Sidelying Exercises 1 Sidelying Exercise Name Clamshells Comments resume next visit as tolerated Sitting Exercises 1 Sitting Exercise Name hamstring stretch, single limb long sitting Comments doing at home Self-Care/Home Management Treatment Education Patient Education Home Exercise Program Pain Management PT-OP-R Modalities Start: 09/18/18 19:31 Freq: Status: Active Protocol: Document 10/01/18 14:42 DLM (Rec: 10/01/18 14:54 DLM [id number]) Electric Stimulation Electric Stimulation Interferential Current (IFC) Body Location lumbosacral Duration (Minutes) 15 Intensity 14 Target/Sweep Target High/Low High Patient Position Prone Combined With Heat/Cold Cold Pack PT-OP-T Assessment and Plan Start: 09/18/18 19:31 Freq: Status: Active Protocol: Document 10/01/18 14:42 DLM (Rec: 10/01/18 14:54 DL [id number]) Physical Therapy Assessment Impairments Impairments Activity Tolerance Functional Activities Pain Posture ROM Soft Tissue Mobility Strength Other Concerns Barriers to Rehabilitation hx of right knee pain Goals Four Impairment Unable to do HEP due to pain Short Term Goal (STG) She will tolerate light HEP to manage her pain STG Duration 2 weeks Mold Filler Goal (LTG) She will return to a full HEP including walking without increased pain LTG Duration 6 weeks Three Impairment Decreased right LE strength with pain Short Term Goal (STG) Increase right LE strength to at least 4+/5 STG Duration 3 weeks Mold Filler Goal (LTG) Increase right LE strength to 5/5 LTG Duration 6 weeks Two Impairment Limited trunk AROM with pain Short Term Goal (STG) Tolerate trunk AROM WNL STG Duration 3 weeks Detention Goal (LTG) Trunk AROM WNL without pain for normal bending and reaching LTG Duration 6 weeks One Impairment Pain in low back and right LE, 6/10 Short Term Goal (STG) Resolve radicular pain in right LE STG Duration 3 weeks- Met Mold Filler Goal (LTG) Resolve back pain LTG Duration 6 weeks Progress Towards Goals Progress Towards Goals Progressing Toward Goals Progress Comments right LE radicular pain has resolved Assessment Summary Assessment Her pain continues to improve. She has mild back/right buttock soreness when she fatigues with exercises but it resolves with rest. Continuing to advance her strengthening slowly to avoid increased pain. She has been able to stop pain medication at home. Concerned that her instability seen with prone hip extension is a component of her increased pain when trying to walk faster on her treadmill (which brought on her current pain flare-up). Physical Therapy Plan Frequency and Duration Frequency of Treatment 2x/Week Duration of Treatment 6 weeks Plan of Care Start Date 09/18/18 Plan of Care End Date 11/29/18 Therapeutic Interventions Therapeutic Interventions Home Exercise Program Manual Therapy Patient/Caregiver Education Self-Care/Home Management Soft Tissue Mobilization Taping Therapeutic Activities Therapeutic Exercises Modalities Cold Pack/Ice Massage Electric Stimulation Hot Packs Ultrasound Next Visit Focus/Plan Next Note Type Treatment Note Next Visit Plan continue to slow advance core stabilization/ strengthening without radicular pain.
--- NOTE | 2018-10-01 15:01 | PT.OTN ---
Current Diagnoses Pain in unspecified knee (10/01/18) Physical Therapy Treatment Note PT-OP-A Visit Information Start: 09/18/18 19:31 Freq: Status: Active Protocol: Document 10/01/18 14:42 DLM (Rec: 10/01/18 14:54 DLM [id number]) Out-Patient Physical Therapy Visit Information Visit Information Visit Type Treatment Note Visit Start Time 13:45 Visit Stop Time 14:45 Total Visit Minutes 60 Visit Number 5/12 Number of FRAMING MILL OPERATOR HELPER Visits 0 Evaluation Information Evaluation Date 09/18/18 PT-OP-B Current Condition Start: 09/18/18 19:31 Freq: Status: Active Protocol: Document 09/18/18 13:45 DLM (Rec: 09/25/18 09:41 DLM [id number]) Current Condition History of Current Condition Onset Date May 2018 Current Complaints Pain in low back and right buttock History of Current Condition She reports her back pain had been doing well since ending Physical Therapy. She attempted to increase her activity and be more aggressive with her exercises at home in May and had a flare-up of her pain. She has not been able to get her pain under control on her own at home. She had to stop her HEP due to the pain. 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 Function- Recreation/Hobbies exercises, walks on treatmill, sewing Current Functional Impairments (Reported) Functional Limitations- ADL's Independent with pain Functional Limitations- Mobility/Gait Independent with pain, the pain limits her distances Functional Limitations- Work/School able to work normal hours but increased pain Functional Limitations- Recreation/ she stopped exercising due to Hobbies her pain Personal Factors Other Personal Factors That May Effect history of knee pain Therapy/Recovery history of GI issues that prevent her from taking most NSAIDS PT-OP-C Subjective Start: 09/18/18 19:31 Freq: Status: Active Protocol: Document 10/01/18 14:42 DLM (Rec: 10/01/18 14:54 DLM [id number]) OP-PT Subjective Patient Comments Patient Comments Her pain has been better. She is no longer taking Celebrex. She was able to do some light moving projects with her friend without increased pain. Patient Reported Progress Improving OP-PT Pain Assessment Location Right Posterior Hip Intensity 0 Scale Used Numeric (1 - 10) Frequency Intermittent Lower Posterior Back Intensity 0 Scale Used Numeric (1 - 10) Frequency Intermittent PT-OP-G Mobility & Gait Start: 09/18/18 19:31 Freq: Status: Active Protocol: Document 09/18/18 13:45 DLM (Rec: 09/28/18 16:53 DLM [id number]) OP Mobility Evaluation Bed Mobility Rolling Independent Supine to and from Sit Independent Transfers Sit to Stand pain, independent OP Gait Assessment Gait Gait Assistance Required: Independent Assistive Devices Assistive Device None Gait Deviations General Gait Pattern Within Normal Limits Factors Limiting Gait Function Factors Limiting Gait Function Pain PT-OP-J Posture/Palpation/Skin Start: 09/18/18 19:31 Freq: Status: Active Protocol: Document 09/18/18 13:45 DLM (Rec: 09/28/18 16:53 DLM [id number]) Posture Evaluation Position Standing Evaluation View Posterior Thorax Posture Neutral L-Spine Posture Decreased Lordosis Pelvis Posture (L) Rotated Posterior (L) Iliac Crest Superior Weight Distribution Weight Shifted Left Ankle/Foot Posture (L) Neutral (R) Neutral Palpation Assessment Location lumbar paraspinals Palpation Findings Soft Tissue Tightness Palpation Details no tenderness, mild tightness gluteal area Palpation Findings Soft Tissue Tightness Tenderness Trigger Point Palpation Details pain center right glut, tightness left gluteal area right hamstring Palpation Findings Soft Tissue Tightness Tenderness Trigger Point PT-OP-K Range of Motion Start: 09/18/18 19:31 Freq: Status: Active Protocol: Document 09/18/18 13:45 DLM (Rec: 09/28/18 16:53 DLM [id number]) Lumbar Spine Range of Motion Lumbar Spine Active Percentage Testing Position standing Flexion 100 Extension 100 Rotation Left 100 Rotation Right 100 Lateral Flexion Left 50 Lateral Flexion Right 75 ROM Limitations Soft Tissue Tightness Pain Comments flexion with return to upright : increase right radicular pain trunk ext: decreased pain lateral flexion: pain to left rotation: increased right LE pain with moving to left Hip Goniometric Range of Motion Hip ROM Limitations Hip ROM Limitations Soft Tissue Tightness Comments right hamstring tightness with straight leg raise PT-OP-L Special Tests Start: 09/18/18 19:31 Freq: Status: Active Protocol: Document 09/18/18 13:45 DLM (Rec: 09/28/18 16:54 DLM [id number]) Special Tests Lumbar Spine Special Tests Straight Leg Raise Test Results negative Comments right HS tightness more than left Slump Test Results increased right LE radicular pain PT-OP-M Strength Start: 09/18/18 19:31 Freq: Status: Active Protocol: Document 09/18/18 13:45 DLM (Rec: 09/28/18 16:53 DLM [id number]) Hip Strength Hip Manual Muscle Testing Right Flexion (L2) 4 Good Extension (S1) 4+ Good+ Abduction 4+ Good+ Adduction 4+ Good+ External Rotation 4+ Good+ Internal Rotation 4+ Good+ Reason Not Measured Pain Comments unstable pelvis with resisted hip flexion in sitting, posterior pelvic/lumbar rotation Left Flexion (L2) 5 Normal Extension (S1) 5 Normal Abduction 5 Normal Adduction 5 Normal External Rotation 5 Normal Internal Rotation 5 Normal Knee Strength Knee Manual Muscle Testing Right Flexion (S2) 5 Normal Extension (L3) 5 Normal Left Flexion (S2) 5 Normal Extension (L3) 5 Normal Ankle/Foot Strength Ankle and Foot Manual Muscle Testing Right Dorsiflexion (L4) 5 Normal Plantarflexion (S1) 5 Normal Left Dorsiflexion (L4) 5 Normal Plantarflexion (S1) 5 Normal Toe Strength Toe Manual Muscle Testing Right Great Toe Extension 5 Normal Left Great Toe Extension 5 Normal PT-OP-Q Treatments Start: 09/18/18 19:31 Freq: Status: Active Protocol: Document 10/01/18 14:42 DLM (Rec: 10/01/18 14:54 DLM [id number]) Cardio Equipment Recumbent Elliptical (Biodex) Duration (Minutes) 5 Resistance 2 Seat Position 8 Other no increase in pain Therapeutic Exercises Supine Exercises 6 Supine Exercise Name Hooklying, TVA with knee lifts Side bilateral Reps/Minutes 10 reps Comments up/up, down/down 5 Supine Exercise Name foam roll postural stretch 4 Supine Exercise Name single knee to chest stetch Side bilateral Reps/Minutes 5 reps each side 2 Supine Exercise Name Hooklying hip Abduction Side bilateral Resistance L2 exercise band Reps/Minutes 10 reps 1 Supine Exercise Name Hooklying hip Adduction with pillow Side bilateral Resistance pillow Reps/Minutes 10 reps Comments mild soreness as she fatigues Prone Exercises 3 Prone Exercise Name prone on elbows Reps/Minutes 3 reps 2 Prone Exercise Name hip extension Side bilateral Reps/Minutes 10 reps Comments small ROM with focus on preventing lumbar rotation Sidelying Exercises 1 Sidelying Exercise Name Clamshells Comments resume next visit as tolerated Sitting Exercises 1 Sitting Exercise Name hamstring stretch, single limb long sitting Comments doing at home Self-Care/Home Management Treatment Education Patient Education Home Exercise Program Pain Management PT-OP-R Modalities Start: 09/18/18 19:31 Freq: Status: Active Protocol: Document 10/01/18 14:42 DLM (Rec: 10/01/18 14:54 DLM [id number]) Electric Stimulation Electric Stimulation Interferential Current (IFC) Body Location lumbosacral Duration (Minutes) 15 Intensity 14 Target/Sweep Target High/Low High Patient Position Prone Combined With Heat/Cold Cold Pack PT-OP-T Assessment and Plan Start: 09/18/18 19:31 Freq: Status: Active Protocol: Document 10/01/18 14:42 DLM (Rec: 10/01/18 14:54 DLM [id number]) Physical Therapy Assessment Impairments Impairments Activity Tolerance Functional Activities Pain Posture ROM Soft Tissue Mobility Strength Other Concerns Barriers to Rehabilitation hx of right knee pain Goals Four Impairment Unable to do HEP due to pain Short Term Goal (STG) She will tolerate light HEP to manage her pain STG Duration 2 weeks Metal Grinder Goal (LTG) She will return to a full HEP including walking without increased pain LTG Duration 6 weeks Three Impairment Decreased right LE strength with pain Short Term Goal (STG) Increase right LE strength to at least 4+/5 STG Duration 3 weeks Metal Grinder Goal (LTG) Increase right LE strength to 5/5 LTG Duration 6 weeks Two Impairment Limited trunk AROM with pain Short Term Goal (STG) Tolerate trunk AROM WNL STG Duration 3 weeks Jail Goal (LTG) Trunk AROM WNL without pain for normal bending and reaching LTG Duration 6 weeks One Impairment Pain in low back and right LE, 6/10 Short Term Goal (STG) Resolve radicular pain in right LE STG Duration 3 weeks- Met Jail Goal (LTG) Resolve back pain LTG Duration 6 weeks Progress Towards Goals Progress Towards Goals Progressing Toward Goals Progress Comments right LE radicular pain has resolved Assessment Summary Assessment Her pain continues to improve. She has mild back/right buttock soreness when she fatigues with exercises but it resolves with rest. Continuing to advance her strengthening slowly to avoid increased pain. She has been able to stop pain medication at home. Concerned that her instability seen with prone hip extension is a component of her increased pain when trying to walk faster on her treadmill (which brought on her current pain flare-up). Physical Therapy Plan Frequency and Duration Frequency of Treatment 2x/Week Duration of Treatment 6 weeks Plan of Care Start Date 09/18/18 Plan of Care End Date 11/29/18 Therapeutic Interventions Therapeutic Interventions Home Exercise Program Manual Therapy Patient/Caregiver Education Self-Care/Home Management Soft Tissue Mobilization Taping Therapeutic Activities Therapeutic Exercises Modalities Cold Pack/Ice Massage Electric Stimulation Hot Packs Ultrasound Next Visit Focus/Plan Next Note Type Treatment Note Next Visit Plan continue to slow advance core stabalization/ strengthening without radicular pain.
--- NOTE | 2018-10-06 14:47 | PT.OTN ---
Current Diagnoses Pain in unspecified knee (10/06/18) Physical Therapy Treatment Note PT-OP-A Visit Information Start: 09/18/18 19:31 Freq: Status: Active Protocol: Document 10/06/18 13:33 LRN (Rec: 10/06/18 14:23 LRN [id number]) Out-Patient Physical Therapy Visit Information Visit Information Visit Type Treatment Note Visit Start Time 13:33 Visit Stop Time 14:30 Total Visit Minutes 57 Visit Number 6/12 Number of [place]ACH[employer] TIER Visits 0 Evaluation Information Evaluation Date 09/18/18 PT-OP-B Current Condition Start: 09/18/18 19:31 Freq: Status: Active Protocol: Document 09/18/18 13:45 DLM (Rec: 09/25/18 09:41 DLM [id number]) Current Condition History of Current Condition Onset Date May 2018 Current Complaints Pain in low back and right buttock History of Current Condition She reports her back pain had been doing well since ending Physical Therapy. She attempted to increase her activity and be more aggressive with her exercises at home in May and had a flare-up of her pain. She has not been able to get her pain under control on her own at home. She had to stop her HEP due to the pain. 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 Function- Recreation/Hobbies exercises, walks on treatmill, sewing Current Functional Impairments (Reported) Functional Limitations- ADL's Independent with pain Functional Limitations- Mobility/Gait Independent with pain, the pain limits her distances Functional Limitations- Work/School able to work normal hours but increased pain Functional Limitations- Recreation/ she stopped exercising due to Hobbies her pain Personal Factors Other Personal Factors That May Effect history of knee pain Therapy/Recovery history of GI issues that prevent her from taking most NSAIDS PT-OP-C Subjective Start: 09/18/18 19:31 Freq: Status: Active Protocol: Document 10/06/18 13:33 LRN (Rec: 10/06/18 14:23 LRN [id number]) OP-PT Subjective Patient Comments Patient Comments Painfree since last visit ( taking Celebrix) until vacumming yesterday. Now with R Sciatic pain. & LB. Driving makes it worse. OP-PT Pain Assessment Pain Assessment Grid Paper Pain Assessment Grid Completed No Location Right Posterior Hip Intensity 2 Scale Used Numeric (1 - 10) Frequency Constant Lower Posterior Back Intensity 2 Scale Used Numeric (1 - 10) Frequency Intermittent PT-OP-G Mobility & Gait Start: 09/18/18 19:31 Freq: Status: Active Protocol: Document 09/18/18 13:45 DLM (Rec: 09/28/18 16:53 DLM [id number]) OP Mobility Evaluation Bed Mobility Rolling Independent Supine to and from Sit Independent Transfers Sit to Stand pain, independent OP Gait Assessment Gait Gait Assistance Required: Independent Assistive Devices Assistive Device None Gait Deviations General Gait Pattern Within Normal Limits Factors Limiting Gait Function Factors Limiting Gait Function Pain PT-OP-J Posture/Palpation/Skin Start: 09/18/18 19:31 Freq: Status: Active Protocol: Document 09/18/18 13:45 DLM (Rec: 09/28/18 16:53 DLM [id number]) Posture Evaluation Position Standing Evaluation View Posterior Thorax Posture Neutral L-Spine Posture Decreased Lordosis Pelvis Posture (L) Rotated Posterior (L) Iliac Crest Superior Weight Distribution Weight Shifted Left Ankle/Foot Posture (L) Neutral (R) Neutral Palpation Assessment Location lumbar paraspinals Palpation Findings Soft Tissue Tightness Palpation Details no tenderness, mild tightness gluteal area Palpation Findings Soft Tissue Tightness Tenderness Trigger Point Palpation Details pain center right glut, tightness left gluteal area right hamstring Palpation Findings Soft Tissue Tightness Tenderness Trigger Point PT-OP-K Range of Motion Start: 09/18/18 19:31 Freq: Status: Active Protocol: Document 09/18/18 13:45 DLM (Rec: 09/28/18 16:53 DLM [id number]) Lumbar Spine Range of Motion Lumbar Spine Active Percentage Testing Position standing Flexion 100 Extension 100 Rotation Left 100 Rotation Right 100 Lateral Flexion Left 50 Lateral Flexion Right 75 ROM Limitations Soft Tissue Tightness Pain Comments flexion with return to upright : increase right radicular pain trunk ext: decreased pain lateral flexion: pain to left rotation: increased right LE pain with moving to left Hip Goniometric Range of Motion Hip ROM Limitations Hip ROM Limitations Soft Tissue Tightness Comments right hamstring tightness with straight leg raise PT-OP-L Special Tests Start: 09/18/18 19:31 Freq: Status: Active Protocol: Document 09/18/18 13:45 DLM (Rec: 09/28/18 16:54 DLM [id number]) Special Tests Lumbar Spine Special Tests Straight Leg Raise Test Results negative Comments right HS tightness more than left Slump Test Results increased right LE radicular pain PT-OP-M Strength Start: 09/18/18 19:31 Freq: Status: Active Protocol: Document 09/18/18 13:45 DLM (Rec: 09/28/18 16:53 DLM [id number]) Hip Strength Hip Manual Muscle Testing Right Flexion (L2) 4 Good Extension (S1) 4+ Good+ Abduction 4+ Good+ Adduction 4+ Good+ External Rotation 4+ Good+ Internal Rotation 4+ Good+ Reason Not Measured Pain Comments unstable pelvis with resisted hip flexion in sitting, posterior pelvic/lumbar rotation Left Flexion (L2) 5 Normal Extension (S1) 5 Normal Abduction 5 Normal Adduction 5 Normal External Rotation 5 Normal Internal Rotation 5 Normal Knee Strength Knee Manual Muscle Testing Right Flexion (S2) 5 Normal Extension (L3) 5 Normal Left Flexion (S2) 5 Normal Extension (L3) 5 Normal Ankle/Foot Strength Ankle and Foot Manual Muscle Testing Right Dorsiflexion (L4) 5 Normal Plantarflexion (S1) 5 Normal Left Dorsiflexion (L4) 5 Normal Plantarflexion (S1) 5 Normal Toe Strength Toe Manual Muscle Testing Right Great Toe Extension 5 Normal Left Great Toe Extension 5 Normal PT-OP-Q Treatments Start: 09/18/18 19:31 Freq: Status: Active Protocol: Document 10/06/18 13:33 LRN (Rec: 10/06/18 14:23 LRN [id number]) Cardio Equipment Recumbent Elliptical (Biodex) Duration (Minutes) 6 Resistance 2 Seat Position 8 Other no increase in pain Therapeutic Exercises Supine Exercises Hamstring/LE Neural stretch Side bilateral Comments Primarily Right 2 Supine Exercise Name Hooklying hip Abduction Side bilateral Resistance L2 exercise band Reps/Minutes 15 reps 1 Supine Exercise Name Hooklying hip Adduction with pillow Side bilateral Resistance pillow Reps/Minutes 15 reps Comments mild soreness as she fatigues Prone Exercises 3 Prone Exercise Name prone on elbows Reps/Minutes 10 reps Sidelying Exercises 1 Sidelying Exercise Name Clamshells Reps/Minutes 15x Sitting Exercises 1 Sitting Exercise Name See Supine ex Manual Therapy Treatment Joint Mobilizations Lumbar spine Joint L3, L4, L5 Direction Correcting R rotation Grade II Body Position Prone Comments Oscillations Sacrum Direction Correction for a R rotated Sacrum Grade III Body Position Prone Comments MFR Neuro Re-Education Treatment Movement Re-Education Movement Re-education Activities Transfers, bending, and changing positions while maintaining neutral spine position. Self-Care/Home Management Treatment Education Patient Education Body Mechanics Home Exercise Program Pain Management Posture Other Education Body mechanics: See movement Re-Ed. HEP: Issued and reviewed Supine hamstring/neural stretch & JOSE MANUEL ex. Pain management: Discussed use of support to lateral trunk and LB in bed & use of ice vs heat for home management of pain. Posture: Neutral spine training in all positions (and with driving position) and functional movements. PT-OP-R Modalities Start: 09/18/18 19:31 Freq: Status: Active Protocol: Document 10/01/18 14:42 DLM (Rec: 10/01/18 14:54 DLM [id number]) Electric Stimulation Electric Stimulation Interferential Current (IFC) Body Location lumbosacral Duration (Minutes) 15 Intensity 14 Target/Sweep Target High/Low High Patient Position Prone Combined With Heat/Cold Cold Pack PT-OP-T Assessment and Plan Start: 09/18/18 19:31 Freq: Status: Active Protocol: Document 10/06/18 13:33 LRN (Rec: 10/06/18 14:23 LRN [id number]) Physical Therapy Assessment Progress Towards Goals Progress Comments Relief of pain post therapy. Pt has onset with driving,. Assessment Summary Assessment Sacrum and L/S is in R rotation. Mild increase tightness of R Gluteals. Improved understanding of neutral spine positioning. Pt needs further v. cuing with proper body mechanics with transition of movements. No pain post therapy, possibly from med with treatment. Physical Therapy Plan Frequency and Duration Frequency of Treatment 2x/Week Duration of Treatment 6 weeks Plan of Care Start Date 09/18/18 Plan of Care End Date 11/29/18 Next Visit Focus/Plan Next Note Type Treatment Note Next Visit Plan Training for driving posturing . Continue manual mob to normalize Sacral & L/S positioning and stabilize core /pelvis.
--- NOTE | 2018-10-08 16:15 | PT.OTN ---
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 She attempted to increase her activity and be more aggressive with her exercises at home in May and had a flare-up of her pain. She has not been able to get her pain under control on her own at home. She had to stop her HEP due to the pain. 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 Function- Recreation/Hobbies exercises, walks on treatmill, sewing Current Functional Impairments (Reported) Functional Limitations- ADL's Independent with pain Functional Limitations- Mobility/Gait Independent with pain, the pain limits her distances Functional Limitations- Work/School able to work normal hours but increased pain Functional Limitations- Recreation/ she stopped exercising due to Hobbies her pain Personal Factors Other Personal Factors That May Effect history of knee pain Therapy/Recovery history of GI issues that prevent her from taking most NSAIDS PT-OP-C Subjective Start: 09/18/18 19:31 Freq: Status: Active Protocol: Document 10/08/18 16:15 RCC (Rec: 10/08/18 16:32 RCC [id number]) OP-PT Subjective Patient Comments Patient Comments Pt states that she is having some low back pain today and increased sciatic pain with pelvic motions. She reports the hamstring stretching seems to aggravate her sciatic symptoms. PT-OP-G Mobility & Gait Start: 09/18/18 19:31 Freq: Status: Active Protocol: Document 09/18/18 13:45 DLM (Rec: 09/28/18 16:53 DLM [id number]) OP Mobility Evaluation Bed Mobility Rolling Independent Supine to and from Sit Independent Transfers Sit to Stand pain, independent OP Gait Assessment Gait Gait Assistance Required: Independent Assistive Devices Assistive Device None Gait Deviations General Gait Pattern Within Normal Limits Factors Limiting Gait Function Factors Limiting Gait Function Pain PT-OP-J Posture/Palpation/Skin Start: 09/18/18 19:31 Freq: Status: Active Protocol: Document 09/18/18 13:45 DLM (Rec: 09/28/18 16:53 DLM [id number]) Posture Evaluation Position Standing Evaluation View Posterior Thorax Posture Neutral L-Spine Posture Decreased Lordosis Pelvis Posture (L) Rotated Posterior (L) Iliac Crest Superior Weight Distribution Weight Shifted Left Ankle/Foot Posture (L) Neutral (R) Neutral Palpation Assessment Location lumbar paraspinals Palpation Findings Soft Tissue Tightness Palpation Details no tenderness, mild tightness gluteal area Palpation Findings Soft Tissue Tightness Tenderness Trigger Point Palpation Details pain center right glut, tightness left gluteal area right hamstring Palpation Findings Soft Tissue Tightness Tenderness Trigger Point PT-OP-K Range of Motion Start: 09/18/18 19:31 Freq: Status: Active Protocol: Document 09/18/18 13:45 DLM (Rec: 09/28/18 16:53 DLM [id number]) Lumbar Spine Range of Motion Lumbar Spine Active Percentage Testing Position standing Flexion 100 Extension 100 Rotation Left 100 Rotation Right 100 Lateral Flexion Left 50 Lateral Flexion Right 75 ROM Limitations Soft Tissue Tightness Pain Comments flexion with return to upright : increase right radicular pain trunk ext: decreased pain lateral flexion: pain to left rotation: increased right LE pain with moving to left Hip Goniometric Range of Motion Hip ROM Limitations Hip ROM Limitations Soft Tissue Tightness Comments right hamstring tightness with straight leg raise PT-OP-L Special Tests Start: 09/18/18 19:31 Freq: Status: Active Protocol: Document 09/18/18 13:45 DLM (Rec: 09/28/18 16:54 DLM [id number]) Special Tests Lumbar Spine Special Tests Straight Leg Raise Test Results negative Comments right HS tightness more than left Slump Test Results increased right LE radicular pain PT-OP-M Strength Start: 09/18/18 19:31 Freq: Status: Active Protocol: Document 09/18/18 13:45 DLM (Rec: 09/28/18 16:53 DLM [id number]) Hip Strength Hip Manual Muscle Testing Right Flexion (L2) 4 Good Extension (S1) 4+ Good+ Abduction 4+ Good+ Adduction 4+ Good+ External Rotation 4+ Good+ Internal Rotation 4+ Good+ Reason Not Measured Pain Comments unstable pelvis with resisted hip flexion in sitting, posterior pelvic/lumbar rotation Left Flexion (L2) 5 Normal Extension (S1) 5 Normal Abduction 5 Normal Adduction 5 Normal External Rotation 5 Normal Internal Rotation 5 Normal Knee Strength Knee Manual Muscle Testing Right Flexion (S2) 5 Normal Extension (L3) 5 Normal Left Flexion (S2) 5 Normal Extension (L3) 5 Normal Ankle/Foot Strength Ankle and Foot Manual Muscle Testing Right Dorsiflexion (L4) 5 Normal Plantarflexion (S1) 5 Normal Left Dorsiflexion (L4) 5 Normal Plantarflexion (S1) 5 Normal Toe Strength Toe Manual Muscle Testing Right Great Toe Extension 5 Normal Left Great Toe Extension 5 Normal PT-OP-Q Treatments Start: 09/18/18 19:31 Freq: Status: Active Protocol: Document 10/08/18 16:15 RCC (Rec: 10/08/18 16:32 RCC [email or web address]) Therapeutic Exercises Prone Exercises 3 Prone Exercise Name prone on elbows Therapeutic Activity Therapeutic Activity posture, body mechanics Name discussion and education Reps/Minutes 8 min Comments posture, alignment in standing and sitting, sitting in car with towel roll, avoid twisting, mirror set up Manual Therapy Treatment Soft Tissue Mobilization R piriformis Body Location R piriformis Mobilization Type Rolling Strumming Intensity/Depth Moderate Body Position L SL with pillow b/t knees and under thorax 2 Body Location R gluteal area Mobilization Type Strumming Sustained Pressure Intensity/Depth Moderate Body Position L SL with pillow b/t knees and under thorax Joint Mobilizations Sacrum Direction Correction for a R rotated Sacrum Grade III Body Position Prone Comments MFR Manual Techniques 1 Type Muscle energy for right posterior rotated pelvis Body Position Supine PT-OP-R Modalities Start: 09/18/18 19:31 Freq: Status: Active Protocol: Document 10/08/18 16:15 RCC (Rec: 10/08/18 16:32 RCC [id number]) Electric Stimulation Electric Stimulation Interferential Current (IFC) Body Location lumbosacral Duration (Minutes) 15 Intensity 16 Target/Sweep Target High/Low High Patient Position Hooklying Combined With Heat/Cold Cold Pack PT-OP-T Assessment and Plan Start: 09/18/18 19:31 Freq: Status: Active Protocol: Document 10/08/18 16:15 RCC (Rec: 10/08/18 16:38 RCC [id number]) Physical Therapy Assessment Assessment Summary Assessment Pt presented with rotations in the sacrum and ilium today, neutral positioning able to be achieved with MET and manual therapy. Pt with posterior gluteal and piriformis tension and tenderness, but pain not extending distally toward the R thigh. She requires cuing and education on body mechanics and posture/ alignment, and would greatly benefit from progressive core and SI joint stability when able to advance. Physical Therapy Plan Frequency and Duration Frequency of Treatment 2x/Week Duration of Treatment 6 weeks Plan of Care Start Date 09/18/18 Plan of Care End Date 11/29/18 Next Visit Focus/Plan Next Note Type Treatment Note Next Visit Plan assess tolerance to this treatment, assess pelvic/SI joint alignment; advance HEP if able with core and gluteal strengthening (pt only to have one more visit this month due to assisting family later this month, but may be able to return in Oct.)
--- NOTE | 2018-10-13 16:34 | PT.OTN ---
Current Diagnoses Pain in unspecified knee (10/13/18) Physical Therapy Treatment Note PT-OP-A Visit Information Start: 09/18/18 19:31 Freq: Status: Active Protocol: Document 10/13/18 15:45 GGD (Rec: 10/13/18 16:34 GGD [email or web address]) Out-Patient Physical Therapy Visit Information Visit Information Visit Type Treatment Note Visit Start Time 13:45 Visit Stop Time 14:45 Total Visit Minutes 60 Visit Number 8/12 Number of MANAGER RFID Visits 1 Evaluation Information Evaluation Date 09/18/18 PT-OP-B Current Condition Start: 09/18/18 19:31 Freq: Status: Active Protocol: Document 09/18/18 13:45 DLM (Rec: 09/25/18 09:41 DLM [id number]) Current Condition History of Current Condition Onset Date May 2018 Current Complaints Pain in low back and right buttock History of Current Condition She reports her back pain had been doing well since ending Physical Therapy. She attempted to increase her activity and be more aggressive with her exercises at home in May and had a flare-up of her pain. She has not been able to get her pain under control on her own at home. She had to stop her HEP due to the pain. 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 Function- Recreation/Hobbies exercises, walks on treatmill, sewing Current Functional Impairments (Reported) Functional Limitations- ADL's Independent with pain Functional Limitations- Mobility/Gait Independent with pain, the pain limits her distances Functional Limitations- Work/School able to work normal hours but increased pain Functional Limitations- Recreation/ she stopped exercising due to Hobbies her pain Personal Factors Other Personal Factors That May Effect history of knee pain Therapy/Recovery history of GI issues that prevent her from taking most NSAIDS PT-OP-C Subjective Start: 09/18/18 19:31 Freq: Status: Active Protocol: Document 10/13/18 15:45 GGD (Rec: 10/13/18 16:34 GGD [email or web address]) OP-PT Subjective Patient Comments Patient Comments Pt states she sore after last visit and then pain free for 3 days. PT-OP-G Mobility & Gait Start: 09/18/18 19:31 Freq: Status: Active Protocol: Document 09/18/18 13:45 DLM (Rec: 09/28/18 16:53 DLM [id number]) OP Mobility Evaluation Bed Mobility Rolling Independent Supine to and from Sit Independent Transfers Sit to Stand pain, independent OP Gait Assessment Gait Gait Assistance Required: Independent Assistive Devices Assistive Device None Gait Deviations General Gait Pattern Within Normal Limits Factors Limiting Gait Function Factors Limiting Gait Function Pain PT-OP-J Posture/Palpation/Skin Start: 09/18/18 19:31 Freq: Status: Active Protocol: Document 09/18/18 13:45 DLM (Rec: 09/28/18 16:53 DLM [id number]) Posture Evaluation Position Standing Evaluation View Posterior Thorax Posture Neutral L-Spine Posture Decreased Lordosis Pelvis Posture (L) Rotated Posterior (L) Iliac Crest Superior Weight Distribution Weight Shifted Left Ankle/Foot Posture (L) Neutral (R) Neutral Palpation Assessment Location lumbar paraspinals Palpation Findings Soft Tissue Tightness Palpation Details no tenderness, mild tightness gluteal area Palpation Findings Soft Tissue Tightness Tenderness Trigger Point Palpation Details pain center right glut, tightness left gluteal area right hamstring Palpation Findings Soft Tissue Tightness Tenderness Trigger Point PT-OP-K Range of Motion Start: 09/18/18 19:31 Freq: Status: Active Protocol: Document 09/18/18 13:45 DLM (Rec: 09/28/18 16:53 DLM [id number]) Lumbar Spine Range of Motion Lumbar Spine Active Percentage Testing Position standing Flexion 100 Extension 100 Rotation Left 100 Rotation Right 100 Lateral Flexion Left 50 Lateral Flexion Right 75 ROM Limitations Soft Tissue Tightness Pain Comments flexion with return to upright : increase right radicular pain trunk ext: decreased pain lateral flexion: pain to left rotation: increased right LE pain with moving to left Hip Goniometric Range of Motion Hip ROM Limitations Hip ROM Limitations Soft Tissue Tightness Comments right hamstring tightness with straight leg raise PT-OP-L Special Tests Start: 09/18/18 19:31 Freq: Status: Active Protocol: Document 09/18/18 13:45 DLM (Rec: 09/28/18 16:54 DLM [id number]) Special Tests Lumbar Spine Special Tests Straight Leg Raise Test Results negative Comments right HS tightness more than left Slump Test Results increased right LE radicular pain PT-OP-M Strength Start: 09/18/18 19:31 Freq: Status: Active Protocol: Document 09/18/18 13:45 DLM (Rec: 09/28/18 16:53 DLM [id number]) Hip Strength Hip Manual Muscle Testing Right Flexion (L2) 4 Good Extension (S1) 4+ Good+ Abduction 4+ Good+ Adduction 4+ Good+ External Rotation 4+ Good+ Internal Rotation 4+ Good+ Reason Not Measured Pain Comments unstable pelvis with resisted hip flexion in sitting, posterior pelvic/lumbar rotation Left Flexion (L2) 5 Normal Extension (S1) 5 Normal Abduction 5 Normal Adduction 5 Normal External Rotation 5 Normal Internal Rotation 5 Normal Knee Strength Knee Manual Muscle Testing Right Flexion (S2) 5 Normal Extension (L3) 5 Normal Left Flexion (S2) 5 Normal Extension (L3) 5 Normal Ankle/Foot Strength Ankle and Foot Manual Muscle Testing Right Dorsiflexion (L4) 5 Normal Plantarflexion (S1) 5 Normal Left Dorsiflexion (L4) 5 Normal Plantarflexion (S1) 5 Normal Toe Strength Toe Manual Muscle Testing Right Great Toe Extension 5 Normal Left Great Toe Extension 5 Normal PT-OP-Q Treatments Start: 09/18/18 19:31 Freq: Status: Active Protocol: Document 10/13/18 15:45 GGD (Rec: 10/13/18 16:34 GGD [email or web address]) Cardio Equipment Recumbent Elliptical (BioduSamp) Duration (Minutes) 6 Resistance 2 Seat Position 8 Other no increase in pain Therapeutic Exercises Supine Exercises 7 Supine Exercise Name bridges. 6 Supine Exercise Name Hooklying, TVA with knee lifts Side bilateral Reps/Minutes 10 reps Sidelying Exercises 1 Sidelying Exercise Name Clamshells Reps/Minutes 15x Manual Therapy Treatment Soft Tissue Mobilization R piriformis Body Location R piriformis Mobilization Type Rolling Strumming Intensity/Depth Moderate Body Position L SL with pillow b/t knees and under thorax 2 Body Location R gluteal area Mobilization Type Strumming Sustained Pressure Intensity/Depth Moderate Body Position L SL with pillow b/t knees and under thorax Joint Mobilizations Sacrum Direction Correction for a R rotated Sacrum Grade III Body Position Prone Comments MFR Manual Techniques 1 Type Muscle energy for right posterior rotated pelvis Body Position Supine Self-Care/Home Management Treatment Education Other Education trail of SI belt and handout on purchasing. PT-OP-R Modalities Start: 09/18/18 19:31 Freq: Status: Active Protocol: Document 10/13/18 15:45 GGD (Rec: 10/13/18 16:34 GGD [email or web address]) Electric Stimulation Electric Stimulation Interferential Current (IFC) Body Location lumbosacral Duration (Minutes) 15 Intensity 16 Target/Sweep Target High/Low High Patient Position Hooklying Combined With Heat/Cold Cold Pack PT-OP-T Assessment and Plan Start: 09/18/18 19:31 Freq: Status: Active Protocol: Document 10/13/18 15:45 GGD (Rec: 10/13/18 16:34 GGD [email or web address]) Physical Therapy Assessment Assessment Summary Assessment Pt had decrease C/O pain with treatment and trial of SI bent . She had decrease in tightness of right glutes and piriformis Physical Therapy Plan Frequency and Duration Frequency of Treatment 2x/Week Duration of Treatment 6 weeks Plan of Care Start Date 09/18/18 Plan of Care End Date 11/29/18 Next Visit Focus/Plan Next Note Type Treatment Note Next Visit Plan assess tolerance to this treatment, assess pelvic/SI joint alignment; advance HEP if able with core and gluteal strengthening, asses SI belt
--- NOTE | 2018-12-30 13:28 | PT.OPDS ---
Current Diagnoses Pain in unspecified knee (10/13/18) Provider Visit Care Team Role Provider Type RENEA Hills Attending Provider Advanced Change House Attendant Specialty: Family Practice Address: [address] [place] [address], [id number] Email: [email or web address] Visit Number Visit Number 07/12 Discharge Summary PT-OP-B Current Condition Start: 09/18/18 19:31 Freq: Status: Active Protocol: Document 09/18/18 13:45 DLM (Rec: 09/25/18 09:41 DLM [id number]) Current Condition History of Current Condition Onset Date May 2018 Current Complaints Pain in low back and right buttock History of Current Condition She reports her back pain had been doing well since ending Physical Therapy. She attempted to increase her activity and be more aggressive with her exercises at home in May and had a flare-up of her pain. She has not been able to get her pain under control on her own at home. She had to stop her HEP due to the pain. 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 Function- Recreation/Hobbies exercises, walks on treatmill, sewing Current Functional Impairments (Reported) Functional Limitations- ADL's Independent with pain Functional Limitations- Mobility/Gait Independent with pain, the pain limits her distances Functional Limitations- Work/School able to work normal hours but increased pain Functional Limitations- Recreation/ she stopped exercising due to Hobbies her pain Personal Factors Other Personal Factors That May Effect history of knee pain Therapy/Recovery history of GI issues that prevent her from taking most NSAIDS PT-OP-C Subjective Start: 09/18/18 19:31 Freq: Status: Active Protocol: Document 10/13/18 15:45 GGD (Rec: 10/13/18 16:34 GGD [email or web address]) OP-PT Subjective Patient Comments Patient Comments Pt states she sore after last visit and then pain free for 3 days. PT-OP-G Mobility & Gait Start: 09/18/18 19:31 Freq: Status: Active Protocol: Document 09/18/18 13:45 DLM (Rec: 09/28/18 16:53 DLM [id number]) OP Mobility Evaluation Bed Mobility Rolling Independent Supine to and from Sit Independent Transfers Sit to Stand pain, independent OP Gait Assessment Gait Gait Assistance Required: Independent Assistive Devices Assistive Device None Gait Deviations General Gait Pattern Within Normal Limits Factors Limiting Gait Function Factors Limiting Gait Function Pain PT-OP-J Posture/Palpation/Skin Start: 09/18/18 19:31 Freq: Status: Active Protocol: Document 09/18/18 13:45 DLM (Rec: 09/28/18 16:53 DLM [id number]) Posture Evaluation Position Standing Evaluation View Posterior Thorax Posture Neutral L-Spine Posture Decreased Lordosis Pelvis Posture (L) Rotated Posterior (L) Iliac Crest Superior Weight Distribution Weight Shifted Left Ankle/Foot Posture (L) Neutral (R) Neutral Palpation Assessment Location lumbar paraspinals Palpation Findings Soft Tissue Tightness Palpation Details no tenderness, mild tightness gluteal area Palpation Findings Soft Tissue Tightness Tenderness Trigger Point Palpation Details pain center right glut, tightness left gluteal area right hamstring Palpation Findings Soft Tissue Tightness Tenderness Trigger Point PT-OP-K Range of Motion Start: 09/18/18 19:31 Freq: Status: Active Protocol: Document 09/18/18 13:45 DLM (Rec: 09/28/18 16:53 DLM [id number]) Lumbar Spine Range of Motion Lumbar Spine Active Percentage Testing Position standing Flexion 100 Extension 100 Rotation Left 100 Rotation Right 100 Lateral Flexion Left 50 Lateral Flexion Right 75 ROM Limitations Soft Tissue Tightness Pain Comments flexion with return to upright : increase right radicular pain trunk ext: decreased pain lateral flexion: pain to left rotation: increased right LE pain with moving to left Hip Goniometric Range of Motion Hip ROM Limitations Hip ROM Limitations Soft Tissue Tightness Comments right hamstring tightness with straight leg raise PT-OP-L Special Tests Start: 09/18/18 19:31 Freq: Status: Active Protocol: Document 09/18/18 13:45 DLM (Rec: 09/28/18 16:54 DLM [id number]) Special Tests Lumbar Spine Special Tests Straight Leg Raise Test Results negative Comments right HS tightness more than left Slump Test Results increased right LE radicular pain PT-OP-M Strength Start: 09/18/18 19:31 Freq: Status: Active Protocol: Document 09/18/18 13:45 [facility] (Rec: 09/28/18 16:53 DL [id number]) Hip Strength Hip Manual Muscle Testing Right Flexion (L2) 4 Good Extension (S1) 4+ Good+ Abduction 4+ Good+ Adduction 4+ Good+ External Rotation 4+ Good+ Internal Rotation 4+ Good+ Reason Not Measured Pain Comments unstable pelvis with resisted hip flexion in sitting, posterior pelvic/lumbar rotation Left Flexion (L2) 5 Normal Extension (S1) 5 Normal Abduction 5 Normal Adduction 5 Normal External Rotation 5 Normal Internal Rotation 5 Normal Knee Strength Knee Manual Muscle Testing Right Flexion (S2) 5 Normal Extension (L3) 5 Normal Left Flexion (S2) 5 Normal Extension (L3) 5 Normal Ankle/Foot Strength Ankle and Foot Manual Muscle Testing Right Dorsiflexion (L4) 5 Normal Plantarflexion (S1) 5 Normal Left Dorsiflexion (L4) 5 Normal Plantarflexion (S1) 5 Normal Toe Strength Toe Manual Muscle Testing Right Great Toe Extension 5 Normal Left Great Toe Extension 5 Normal PT-OP-T Assessment and Plan Start: 09/18/18 19:31 Freq: Status: Active Protocol: Document 12/30/18 13:27 [facility] (Rec: 12/30/18 13:28 [facility] [id number]) Physical Therapy Plan Discharge Physical Therapy Discharge Reasons No Longer Attending PT Discharge Comments Pt cancelled last appointments and did not schedule more when called.
== END 2019-01-01 09:23 ==
LOC: PHYS 13:45
PROVIDERS: Visit Provider Internal Medicine
DX: M25.569 Pain in unspecified knee (principal)
CPT/HCPCS: 97014; 97110; 97140; 97162; 97530; 97535; G0283

== ENCOUNTER → 2019-02-15 11:07 | Outpatient (CLI) | payer OTHER, SELFPAY ==
--- NOTE | 2019-02-15 | DI.MG.S_ITS ---
BILATERAL DIGITAL SCREENING MAMMOGRAM 3D/2D WITH CAD: 02/15/2019 Comparison is made to exams dated: 01/13/2018 mammogram, 12/03/2016 mammogram, and 11/27/2015 mammogram - [facility]. The tissue of both breasts is extremely dense, which lowers the sensitivity of mammography. Current study was also evaluated with a Computer Aided Detection (CAD) system. No significant masses, calcifications, or other findings are seen in either breast. There has been no significant interval change. IMPRESSION: NEGATIVE There is no mammographic evidence of malignancy. A 1 year screening mammogram is recommended. This exam was interpreted at Station ID: [id number]. NOTE: For mammograms, a report in lay terms will be sent to the patient. Approximately 15% of breast malignancies will not be visualized mammographically. In the management of a palpable breast mass, a negative mammogram must not discourage biopsy of a clinically suspicious lesion. Electronically Signed By: Ted rodriguez/shane:02/15/2019 12:59:03 letter sent: Normal Exam ACR BI-RADS Category 1: Negative [id number]
[2019-02-15 11:55] LABS: Add Manual Diff / Slide Review NO; Basophils Absolute Auto 0 /uL (0-100); Eosinophils Absolute Auto 100 /uL (0-450); Eosinophils Percent Auto 1.9 % (2-4); Hematocrit 39.5 % (36-46); Hemoglobin 13.3 g/dL (12.0-16.0); Lymphocytes Absolute Auto 1500 /uL (1100-4500); Lymphocytes Percent Auto 33.7 % (25-40); Mean Corpuscular HGB Conc 33.7 % (30-36); Mean Corpuscular Hemoglobin 30.5 PG (26-34); Mean Corpuscular Volume 90.6 fL (80-100); Monocytes Absolute Auto 400 /uL (0-900); Monocytes Percent Auto 8.7 % (3-14); Neutrophils Absolute Auto 2500 /uL (1500-7000); Neutrophils Percent Auto 54.7 % (50-75); Platelet Count 247 X10^3/uL (150-400); Red Blood Cell Count 4.35 X10^6/uL (4.0-5.2); Red Cell Distribution Width 12.6 % (11.6-14.8); White Blood Cell Count 4.6 X10^3/uL (4.5-11.0)
[2019-02-15 12:17] LABS: Alanine Aminotransferase 22 IU/L (9-52); Albumin 4.7 g/dL (3.5-5.0); Albumin Globulin Ratio 1.8 (1.0-2.8); Alkaline Phosphatase 55 U/L (38-126); Aspartate Aminotransferase 20 IU/L (14-36); BUN Creatinine Ratio 26.7 (6-22); Bilirubin Total 0.7 mg/dL (0.2-1.3); Blood Urea Nitrogen 16 mg/dL (7-17); Calcium 9.3 mg/dL (8.4-10.2); Carbon Dioxide 30 mmol/L (22-32); Chloride 102 mmol/L (98-107); Cholesterol 182 mg/dL (140-199); Estimated Glomerular Filt Rate > 60.0 mL/min (>60); Globulin 2.6 g/dL (1.7-4.1); Glucose 93 mg/dL (80-110); HDL Cholesterol 72 mg/dL (40-60); HEMOLYSIS < 15 (0-50); LDL Cholesterol Calculated 89 mg/dL (<100); Potassium 3.9 mmol/L (3.4-5.1); Sodium 140 mmol/L (137-145); Total Protein 7.3 g/dL (6.3-8.2); Triglycerides 103 mg/dL (35-150)
== END ==
PROVIDERS: PCP Internal Medicine; Visit Provider Internal Medicine
DX: Z12.31 Encounter for screening mammogram for malignant neoplasm of breast (principal)
CPT/HCPCS: 36415; 77063; 77067; 80053; 80061; 85025

== ENCOUNTER → 2019-04-12 10:11 | Outpatient (CLI) | payer OTHER, SELFPAY | PROVIDERS: PCP Internal Medicine; Visit Provider Internal Medicine | DX: M81.0 Age-related osteoporosis without current pathological fracture (principal); Z78.0 Asymptomatic menopausal state | CPT/HCPCS: 77080 ==

== ENCOUNTER → 2019-10-25 15:31 | Outpatient (CLI) | payer OTHER, SELFPAY | PROVIDERS: PCP Internal Medicine | DX: Z23 Encounter for immunization (principal) | CPT/HCPCS: 90471; 90686 ==

== ENCOUNTER → 2020-06-24 09:56 | Outpatient (CLI) | payer OTHER, SELFPAY ==
--- NOTE | 2020-06-24 | DI.MG.S_ITS ---
BILATERAL DIGITAL SCREENING MAMMOGRAM 3D/2D WITH CAD: 06/24/2020 CLINICAL: Routine screening. Comparison is made to exams dated: 02/15/2019 mammogram, 01/13/2018 mammogram, and 12/03/2016 mammogram - [facility]. The tissue of both breasts is extremely dense, which lowers the sensitivity of mammography. Current study was also evaluated with a Computer Aided Detection (CAD) system. There is an irregular asymmetry with an indistinct margin in the left breast middle depth central to the nipple seen on the craniocaudal view only. This is more prominent. No other significant masses, calcifications, or other findings are seen in either breast. IMPRESSION: INCOMPLETE: NEEDS ADDITIONAL IMAGING EVALUATION The irregular asymmetry in the left breast is indeterminate. Additional views with possible ultrasound are recommended. This exam was interpreted at Station ID: [id number]. NOTE: For mammograms, a report in lay terms will be sent to the patient. Approximately 15% of breast malignancies will not be visualized mammographically. In the management of a palpable breast mass, a negative mammogram must not discourage biopsy of a clinically suspicious lesion. Electronically Signed By: Dorothy johnson/shane:06/26/2020 09:32:50 letter sent: Additional Imaging Needed ACR BI-RADS Category 0: Incomplete 3340F
== END ==
PROVIDERS: PCP Internal Medicine; Referring Provider Internal Medicine; Visit Provider Internal Medicine
DX: Z12.31 Encounter for screening mammogram for malignant neoplasm of breast (principal)
CPT/HCPCS: 77063; 77067

== ENCOUNTER → 2020-06-24 10:00 | Outpatient (CLI) | payer OTHER, SELFPAY ==
[2020-06-24 10:58] LABS: Add Manual Diff / Slide Review NO; Basophils Absolute Auto 100 /uL (0-100); Eosinophils Absolute Auto 100 /uL (0-450); Eosinophils Percent Auto 2.6 % (2-4); Hematocrit 34.4 % (36-46); Hemoglobin 12.1 g/dL (12.0-16.0); Lymphocytes Absolute Auto 1600 /uL (1100-4500); Mean Corpuscular HGB Conc 35.1 % (30-36); Mean Corpuscular Hemoglobin 31.2 PG (26-34); Mean Corpuscular Volume 88.7 fL (80-100); Monocytes Absolute Auto 400 /uL (0-900); Monocytes Percent Auto 7.5 % (3-14); Neutrophils Absolute Auto 3000 /uL (1500-7000); Neutrophils Percent Auto 57.9 % (50-75); Platelet Count 252 X10^3/uL (150-400); Red Blood Cell Count 3.88 X10^6/uL (4.0-5.2); Red Cell Distribution Width 12.4 % (11.6-14.8); White Blood Cell Count 5.1 X10^3/uL (4.5-11.0)
[2020-06-24 11:00] LABS: Appearance Urine UA CLEAR; Bilirubin Urine UA NEGATIVE (NEGATIVE); Color Urine UA YELLOW; Glucose Urine UA NEGATIVE (Negative); Ketones Urine UA NEGATIVE (NEGATIVE); Leukocyte Esterase Urine UA NEGATIVE (NEGATIVE); Nitrite Urine UA NEGATIVE (Negative); Occult Blood Urine UA TRACE-LYSED (Negative); Protein Urine UA NEGATIVE (Negative); Specific Gravity Urine UA 1.015 (1.000-1.035); Urobilinogen Urine UA 0.2 E.U./dL (0.2)
[2020-06-24 11:07] LABS: pH Urine UA 6.5 (4.5-8.0)
[2020-06-24 11:12] LABS: Alanine Aminotransferase 14 IU/L (<35); Albumin 4.4 g/dL (3.5-5.0); Albumin Globulin Ratio 1.9 (1.0-2.8); Alkaline Phosphatase 54 U/L (38-126); Aspartate Aminotransferase 24 IU/L (14-36); BUN Creatinine Ratio 28.3 (6-22); Bilirubin Total 0.7 mg/dL (0.2-1.3); Blood Urea Nitrogen 15 mg/dL (7-17); Calcium 9.2 mg/dL (8.4-10.2); Carbon Dioxide 28 mmol/L (22-32); Chloride 105 mmol/L (98-107); Cholesterol 174 mg/dL (140-199); Estimated Glomerular Filt Rate > 60.0 mL/min (>60); Globulin 2.3 g/dL (1.7-4.1); Glucose 103 mg/dL (80-110); HDL Cholesterol 63 mg/dL (40-60); HEMOLYSIS < 15 (0-50); LDL Cholesterol Calculated 83 mg/dL (<100); Potassium 3.9 mmol/L (3.4-5.1); Sodium 138 mmol/L (137-145); Total Protein 6.7 g/dL (6.3-8.2); Triglycerides 139 mg/dL (35-150)
[2020-06-24 11:51] LABS: Bacteria Urine Moderate (10-30); RBC Urine 0-1/HPF (0-5/HPF); Squamous Epithelial Cell Urine 5-10 /HPF (0-5/HPF); WBC Urine 1-5/HPF (0-5/HPF)
== END ==
PROVIDERS: PCP Internal Medicine; Referring Provider Internal Medicine; Visit Provider Internal Medicine
DX: Z13.9 Encounter for screening, unspecified (principal)
CPT/HCPCS: 80053; 80061; 81001; 85025

== ENCOUNTER → 2020-07-07 14:59 | Outpatient (ROUT) | payer OTHER, SELFPAY ==
[2020-07-11 15:10] LABS: Fecal Immunochemical Test Negative (Negative)
== END ==
PROVIDERS: PCP Internal Medicine; Visit Provider Internal Medicine
DX: Z13.9 Encounter for screening, unspecified (principal)
CPT/HCPCS: 82274

== ENCOUNTER → 2020-07-18 12:45 | Outpatient (CLI) | payer OTHER, SELFPAY ==
--- NOTE | 2020-07-18 | DI.MG.S_ITS ---
UNILATERAL LEFT DIGITAL DIAGNOSTIC MAMMOGRAM 3D/2D WITH ADDITIONAL VIEWS: 07/18/2020 CLINICAL: Additional evaluation requested from prior study. Comparison is made to exams dated: 06/24/2020 mammogram, 02/15/2019 mammogram, and 01/13/2018 mammogram - [facility]. The tissue of left breast is heterogeneously dense. This may lower the sensitivity of mammography. The previously described asymmetry with an obscured margin in the left breast middle depth central to the nipple seen on the craniocaudal view only appears is less prominent and decreased in size on today's additional images. No other significant masses or calcifications are seen in the breast. IMPRESSION: INCOMPLETE: NEEDS ADDITIONAL IMAGING EVALUATION The oval asymmetry in the left breast is indeterminate. An ultrasound is recommended for further evaluation and is scheduled to immediately follow this study. This exam was interpreted at Station ID: [id number]. NOTE: For mammograms, a report in lay terms will be sent to the patient. Approximately 15% of breast malignancies will not be visualized mammographically. In the management of a palpable breast mass, a negative mammogram must not discourage biopsy of a clinically suspicious lesion. Electronically Signed By: Ted Chamorro M.D. aty/:07/18/2020 14:02:21 ACR BI-RADS Category 0: Incomplete [id number]
--- NOTE | 2020-07-18 | DI.US.S_ITS ---
ULTRASOUND OF LEFT BREAST: 07/18/2020 CLINICAL: Patient returns today to evaluate asymmetry in left breast. Comparison is made to exams dated: 07/18/2020 mammogram, 06/24/2020 mammogram, 02/15/2019 mammogram, 01/13/2018 mammogram, 12/03/2016 mammogram, and 11/27/2015 mammogram - [facility]. Color flow and real-time ultrasound of the left breast were performed. Segovia scale images of the real-time examination were reviewed. There is 0.9 cm x 0.5 cm x 0.4 cm segment of duct ectasia in the left breast at 12 o'clock in the retroareolar region. This duct ectasia displays internal echoes. Color flow imaging demonstrates that there is no vascularity present or internal solid components. There also is a 0.5 cm x 0.3 cm x 0.4 cm oval cyst in the left breast at 9 o'clock middle depth 5 cm from the nipple. This oval cyst is hypoechoic with internal echoes. This may or may not correlate with mammography finding described earlier on today's mammographic evaluation. Color flow imaging demonstrates that there is no vascularity present. IMPRESSION: PROBABLY BENIGN The 0.9 cm x 0.5 cm x 0.4 cm presumed focal duct ectasia in the left breast at 12 o'clock in the retroareolar region is probably benign. The 0.5 cm x 0.3 cm x 0.4 cm oval cyst in the left breast at 9 o'clock middle depth is consistent with a minimally complicated cyst and is probably benign. These findings do not definitely correlate with the mammographic finding of the craniocaudal view asymmetry. A follow-up left mammogram and an ultrasound in 6 months is recommended to demonstrate stability. Findings and recommendations were conveyed to the patient during today's visit. This exam was interpreted at Station ID: [id number]. Electronically Signed By: Ted Chamorro M.D. aty/:07/18/2020 14:41:06 letter sent: Followup Recommended Ultrasound BI-RADS: 3 Probably benign
== END ==
PROVIDERS: PCP Internal Medicine; Referring Provider Internal Medicine; Visit Provider Internal Medicine
DX: R92.8 Other abnormal and inconclusive findings on diagnostic imaging of breast (principal); N64.89 Other specified disorders of breast; N60.02 Solitary cyst of left breast; N60.42 Mammary duct ectasia of left breast
CPT/HCPCS: 76642; 77065; G0279

== ENCOUNTER → 2020-09-14 01:36 | Outpatient (CLI) | payer OTHER, SELFPAY | PROVIDERS: PCP Internal Medicine; Referring Provider Internal Medicine; Visit Provider Internal Medicine | DX: Z23 Encounter for immunization (principal) | CPT/HCPCS: 90471; 90686 ==

== ENCOUNTER → 2020-12-08 14:24 | Outpatient (CLI) | payer OTHER, SELFPAY ==
[2020-12-08] MEDS: COVID-19 VACC(MODERNA-1)/PF 100 MCG/0.5 ML VIAL IM (14:29)
== END ==
PROVIDERS: PCP Internal Medicine; Visit Provider Internal Medicine
DX: Z23 Encounter for immunization (principal)
CPT/HCPCS: 0011A; 91301

== ENCOUNTER → 2021-01-04 14:18 | Outpatient (CLI) | payer OTHER, SELFPAY ==
[2021-01-04] MEDS: COVID-19 VACC #2, MRNA(MOD) 100 MCG/0.5 ML VIAL IM (14:26)
== END ==
PROVIDERS: PCP Internal Medicine; Visit Provider Internal Medicine
DX: Z23 Encounter for immunization (principal)
CPT/HCPCS: 0012A; 91301

== ENCOUNTER → 2021-01-11 14:59 | Outpatient (CLI) | payer OTHER, SELFPAY ==
--- NOTE | 2021-01-11 15:01 | DI.US.S_ITS ---
LIMITED ULTRASOUND OF LEFT BREAST AND AXILLA: 01/11/2021 CLINICAL: 6 month follow-up of left breast. Comparison is made to exams dated: 01/11/2021 mammogram, 07/18/2020 ultrasound, and 07/18/2020 mammogram - [facility]. Color flow and real-time ultrasound of the left breast 9 o'clock, retroareolar, and axilla regions were performed on the areas of interest. There are a few dilated ducts consistent with duct ectasia in the left breast central to the nipple in the retroareolar region. No discrete mass-like filling defects identified. This abnormality is not significantly changed. There also is a stable 0.4 cm x 0.3 cm x 0.4 cm oval cyst in the left breast at 9 o'clock middle depth. This oval cyst is anechoic with a well-defined boundary and internal echoes. Color flow imaging demonstrates that there is no vascularity present. IMPRESSION: PROBABLY BENIGN The duct ectasia in the left breast central to the nipple in the retroareolar region is probably benign. The stable 0.4 cm x 0.3 cm x 0.4 cm oval cyst in the left breast at 9 o'clock middle depth is consistent with a minimally complicated cyst and is probably benign. A follow-up ultrasound in 6 months is recommended. An ultrasound in 6 months is recommended to demonstrate stability. Patient will be due for bilateral screening mammography in 6 months. Future imaging is recommended as follows: 01/18/2021 bilateral mammogram and an ultrasound. This exam was interpreted at Station ID: [id number]. Electronically Signed By: Lukas ricks/:01/11/2021 16:24:44 letter sent: Followup Recommended Ultrasound BI-RADS: 3 Probably benign
--- NOTE | 2021-01-11 15:01 | DI.MG.S_ITS ---
UNILATERAL LEFT DIGITAL DIAGNOSTIC MAMMOGRAM 3D/2D SHORT-TERM FOLLOW-UP: 01/11/2021 CLINICAL: Patient returns for a 6 month follow up of the left breast. Comparison is made to exams dated: 07/18/2020 mammogram, 06/24/2020 mammogram, and 02/15/2019 mammogram - [facility]. The tissue of left breast is heterogeneously dense. This may lower the sensitivity of mammography. There is an oval equal density asymmetry with an indistinct margin in the left breast middle depth central to the nipple seen on the craniocaudal view only. This is decreased in size. No other significant masses or calcifications are seen in the breast. IMPRESSION: INCOMPLETE: NEEDS ADDITIONAL IMAGING EVALUATION The oval equal density asymmetry in the left breast is decreased in size and prominence and likely benign. An ultrasound is recommended to evaluate for possible correlate as well as for followup of the findings on the prior study. Ultrasound will be performed immediately following the current exam. This exam was interpreted at Station ID: [id number]. NOTE: For mammograms, a report in lay terms will be sent to the patient. Approximately 15% of breast malignancies will not be visualized mammographically. In the management of a palpable breast mass, a negative mammogram must not discourage biopsy of a clinically suspicious lesion. Electronically Signed By: Lukas Caballero M.D. ddcory/:01/11/2021 15:49:26 ACR BI-RADS Category 0: Incomplete [id number]
== END ==
PROVIDERS: PCP Internal Medicine; Referring Provider Internal Medicine; Visit Provider Internal Medicine
DX: R92.8 Other abnormal and inconclusive findings on diagnostic imaging of breast (principal); N60.42 Mammary duct ectasia of left breast; N60.02 Solitary cyst of left breast
CPT/HCPCS: 76642; 77065; G0279

== ENCOUNTER → 2021-07-17 09:29 | Outpatient (CLI) | payer OTHER, SELFPAY ==
--- NOTE | 2021-07-17 | DI.MG.S_ITS ---
BILATERAL DIGITAL DIAGNOSTIC MAMMOGRAM 3D/2D: 07/17/2021 CLINICAL: Short follow up, due bilaterally. Comparison is made to exams dated: 01/11/2021 mammogram, 07/18/2020 mammogram, 06/24/2020 mammogram, and 02/15/2019 mammogram - [facility]. The tissue of both breasts is heterogeneously dense. This may lower the sensitivity of mammography. There is an asymmetry in the left breast middle depth central to the nipple seen on the craniocaudal view only. This is less prominent. No other significant masses, calcifications, or other findings are seen in either breast. IMPRESSION: INCOMPLETE: NEEDS ADDITIONAL IMAGING EVALUATION The asymmetry in the left breast is indeterminate. A targeted ultrasound is recommended and will immediately follow. This exam was interpreted at Station ID: [id number]. NOTE: For mammograms, a report in lay terms will be sent to the patient. Approximately 15% of breast malignancies will not be visualized mammographically. In the management of a palpable breast mass, a negative mammogram must not discourage biopsy of a clinically suspicious lesion. Electronically Signed By: Anthony Ford M.D. [facility] [place]/:07/17/2021 10:09:31 ACR BI-RADS Category 0: Incomplete 3340F
--- NOTE | 2021-07-17 | DI.US.S_ITS ---
LIMITED ULTRASOUND OF LEFT BREAST: 07/17/2021 CLINICAL: 6 month follow-up of cysts. Comparison is made to exams dated: 07/17/2021 mammogram, 01/11/2021 ultrasound, 01/11/2021 mammogram, 07/18/2020 ultrasound, 07/18/2020 mammogram, and 06/24/2020 mammogram - [facility]. Color flow and real-time ultrasound of the left breast 9 o'clock, and retroareolar regions were performed. Segovia scale images of the real-time examination were reviewed. 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 This abnormality is not significantly changed. No intraductal mass seen. No internal vascularity. The cyst in the left breast at 9 o'clock middle depth is no longer seen and is benign. IMPRESSION: PROBABLY BENIGN The focal duct ectasia in the retroareolar left breast is probably benign. A follow-up mammogram and an ultrasound in 12 months is recommended to demonstrate long-term stability of the mammographic asymmetry finding and duct ectasia. Exam findings were conveyed to the patient. This exam was interpreted at Station ID: [id number]. Electronically Signed By: Anthony Ford M.D. slc/:07/17/2021 10:42:09 letter sent: Followup Recommended Ultrasound BI-RADS: 3 Probably benign
== END ==
PROVIDERS: PCP Internal Medicine; Referring Provider Internal Medicine; Visit Provider Internal Medicine
DX: R92.8 Other abnormal and inconclusive findings on diagnostic imaging of breast (principal); N60.42 Mammary duct ectasia of left breast
CPT/HCPCS: 76642; 77066; G0279

== ENCOUNTER → 2021-07-31 14:07 | Outpatient (CLI) | payer OTHER, SELFPAY ==
--- NOTE | 2021-07-31 | DI.RAD.S_ITS ---
PROCEDURE: XR FINGER RT MIN 2V INDICATIONS: RIGHT THUMB PAIN TECHNIQUE: AP hand, 2 views of the 1st finger(s) acquired. COMPARISON: None. FINDINGS: Bones: No fractures or dislocations. Osteoarthritic changes are noted throughout right thumb. No gross bony erosive changes are seen. No suspicious bony lesions. Soft tissues: No suspicious soft tissue calcifications. IMPRESSION: Right thumb osteoarthritis. No fracture or dislocation. No gross bony erosive changes. Dictated by: Milan Beaulieu M.D. on 07/31/2021 at 16:58 Approved by: Milan Beaulieu M.D. on 07/31/2021 at 17:02
== END ==
PROVIDERS: PCP Internal Medicine; Referring Provider Internal Medicine; Visit Provider Internal Medicine
DX: M79.644 Pain in right finger(s) (principal); M19.041 Primary osteoarthritis, right hand
CPT/HCPCS: 73140

== ENCOUNTER 2021-08-28 12:09 | Outpatient (RCR) | payer OTHER, SELFPAY ==
--- NOTE | 2021-08-28 14:22 | OT.OP.EVAL ---
Visit Care Team Role Provider Type RENEA [place] Attending Provider Advanced Private Banker Family Provider Primary Care Provider Referring Provider Specialty: Family Practice Address: [address] [place] [address], [address], [place], [address] Email: [email or web address] Occupational Therapy Initial Evaluation OT Outpatient Adult Evaluation Start: 08/28/21 14:02 Freq: Status: Active Protocol: Document 08/28/21 14:02 AMS (Rec: 08/28/21 14:20 AMS [id number]) General Information Visit Start Time 12:30 Visit Stop Time 13:15 Total Visit Minutes 45 Plan of Care Dates 08/28/21-08/29/21 Insurance Information [facility] (18 visits then pre-auth evicore) Treatment Setting Outpatient Care Note Type Initial Evaluation Identification Confirmed Yes Assessment/Plan Treatment Assessment Maria Luisa is a 65 year-old right hand dominant female referred to outpatient OT by PCP secondary to R thumb pain. Maria Luisa had an x-ray completed at [facility]. Findings were as follows: Right thumb OA. No fracture or dislocation. No gross bony erosive changes. PMH: Significant for Osteoporosis. 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 Maria Luisa enjoys knitting, sewing, and gardening. She has tried a number of different ways to reduce the pain of her right thumb (night splint, massage, topical creams); yet, she still has pain that limits her day-to-day life (6 out of 10 on the pain scale relative to the right thumb). Maria Luisa reported that heat in the morning helps the most when her thumb is stiff. She does have an appointment scheduled with Dr. Russo for injection ( September 18). Maria Luisa demonstrated knowledge of joint protection principles, including avoiding sustained individual pension adviser/static positioning of the fingers/thumb and repetitive movement patterns, and avoiding positions of deformity with task execution. (+) thumb adductor tightness noted (R>L); laxity at the MPJ of right thumb (ulnar); weakness with thumb extension. Some crepitus noted with active ROM of R thumb IPJ; denied locking of joint. Initiated HEP (CMC abduction, thumb add release, gentle thumb distraction at midline, strengthening of extension of thumb at MPJ and DIP w/ joint blocking). Written and visual instructions were provided for rubberband exercises and all questions were answered. Therapist also recommended investment in personal paraffin bath given positive response to heat. Based on patient feedback, patient's appointment with Dr. Russo for likely injection for pain management, no further therapy is needed at this time. Therapist to follow-up as appropriate. Therapeutic Contents Therapeutic Exercises Patient Recommendations Discharge from Occupational Therapy
== END 2021-08-28 15:41 | disposition home or self-care (01) ==
LOC: OT 12:09
PROVIDERS: Family Provider Internal Medicine; PCP Internal Medicine; Referring Provider Internal Medicine; Visit Provider Internal Medicine
DX: M79.644 Pain in right finger(s) (principal)
CPT/HCPCS: 97110; 97165

== ENCOUNTER → 2021-09-13 | Outpatient (CLI) | payer OTHER, SELFPAY | PROVIDERS: Family Provider Internal Medicine; PCP Internal Medicine; Referring Provider Internal Medicine; Visit Provider Internal Medicine | DX: Z23 Encounter for immunization (principal) | CPT/HCPCS: 90471; 90686 ==

== ENCOUNTER → 2022-01-30 11:39 | Outpatient (CLI) | payer MEDICARE, OTHER, SELFPAY | PROVIDERS: Family Provider Internal Medicine; PCP Internal Medicine; Referring Provider Internal Medicine; Visit Provider Internal Medicine | DX: M81.0 Age-related osteoporosis without current pathological fracture (principal); Z78.0 Asymptomatic menopausal state | CPT/HCPCS: 77080 ==

== ENCOUNTER → 2022-08-02 14:43 | Outpatient (CLI) | payer MEDICARE, OTHER, SELFPAY ==
--- NOTE | 2022-08-02 14:46 | DI.RAD.S_ITS ---
PROCEDURE: XR SHOULDER RT MIN 2V INDICATIONS: RIGHT SHOULDER PAIN TECHNIQUE: 3 views of the shoulder were acquired. COMPARISON: None. FINDINGS: Bones: No fractures or dislocations. No suspicious bony lesions. Visualized ribs appear intact. Soft tissues: No suspicious soft tissue calcifications. IMPRESSION: Unremarkable right shoulder radiographs Approved by: Lamine Ortega M.D. on 08/02/2022 at 18:09
== END ==
PROVIDERS: Family Provider Internal Medicine; PCP Internal Medicine; Referring Provider Internal Medicine; Visit Provider Internal Medicine
DX: M25.511 Pain in right shoulder (principal)
CPT/HCPCS: 73030

== ENCOUNTER → 2022-08-07 10:13 | Outpatient (CLI) | payer MEDICARE, OTHER, SELFPAY ==
--- NOTE | 2022-08-07 | DI.US.S_ITS ---
LIMITED ULTRASOUND OF LEFT BREAST: 08/07/2022 CLINICAL: Patient returns today to evaluate a focal asymmetry in the left breast. Comparison is made to exams dated: 08/07/2022 mammogram, 07/17/2021 ultrasound, 07/17/2021 mammogram, 01/11/2021 ultrasound, 01/11/2021 mammogram, and 06/24/2020 mammogram - [facility]. Color flow and real-time ultrasound of the left breast 11-12 o'clock, and retroareolar regions were performed. Segovia scale images of the real-time examination were reviewed. There is stable benign duct ectasia in the left breast central to the nipple in the retroareolar region. There also is a benign 0.8 cm x 0.6 cm x 0.3 cm oval cyst in the left breast at 11 o'clock posterior depth 7 cm from the nipple. No mass in the region of possible asymmetry in the left breast. This oval cyst is anechoic with a well-defined boundary and posterior acoustic enhancement. This correlates as an incidental finding. Color flow imaging demonstrates that there is no vascularity present. IMPRESSION: BENIGN There is no sonographic evidence of malignancy. The stable duct ectasia in the left breast central to the nipple in the retroareolar region is benign. No mass in the region of possible asymmetry in the left breast. The 0.8 cm oval cyst in the left breast at 11 o'clock posterior depth is benign. Exam findings were conveyed to the patient. A 1 year screening mammogram is recommended. This exam was interpreted at Station ID: [id number]. Electronically Signed By: Anthony Ford M.D. slc/:08/07/2022 11:07:21 letter sent: Normal Exam Ultrasound BI-RADS: 2 Benign
--- NOTE | 2022-08-07 10:16 | DI.MG.S_ITS ---
BILATERAL DIGITAL DIAGNOSTIC MAMMOGRAM 3D/2D: 08/07/2022 CLINICAL: Short term follow up of the left breast, due for bilateral imaging. Comparison is made to exams dated: 07/17/2021 ultrasound, 07/17/2021 mammogram, 01/11/2021 mammogram, 07/18/2020 mammogram, 06/24/2020 mammogram, and 02/15/2019 mammogram - [facility]. Both breasts are heterogeneously dense, which may obscure small masses (category c / 51-75% glandular tissue). There is a stable asymmetry in the left breast posterior depth central to the nipple seen on the craniocaudal view only. This was not seen on the prior ultrasound. Dystrophic calcifications in the left breast are increased. No other significant masses, calcifications, or other findings are seen in either breast. IMPRESSION: INCOMPLETE: NEEDS ADDITIONAL IMAGING EVALUATION Stable asymmetry in the left breast is indeterminate. A targeted ultrasound is recommended and will immediately follow. Based on the Tyrer Cuzick model (a risk assessment model) the patient's lifetime risk is 5.9% and her 10 year risk is 2.8%. According to the ACR, ACS, and NCCN guidelines, an annual breast MRI exam along with mammogram is recommended if the patient's lifetime risk is 20% or greater. This exam was interpreted at Station ID: [id number]. NOTE: For mammograms, a report in lay terms will be sent to the patient. Approximately 15% of breast malignancies will not be visualized mammographically. In the management of a palpable breast mass, a negative mammogram must not discourage biopsy of a clinically suspicious lesion. Electronically Signed By: Anthony Ford M.D. [facility]/:08/07/2022 10:40:42 ACR BI-RADS Category 0: Incomplete 3340F
== END ==
PROVIDERS: Family Provider Internal Medicine; PCP Internal Medicine; Referring Provider Internal Medicine; Visit Provider Internal Medicine
DX: R92.8 Other abnormal and inconclusive findings on diagnostic imaging of breast (principal); N64.89 Other specified disorders of breast; N60.02 Solitary cyst of left breast; N60.42 Mammary duct ectasia of left breast
CPT/HCPCS: 76642; 77066; G0279

== ENCOUNTER → 2022-10-08 07:54 | Outpatient (CLI) | payer MEDICARE, OTHER, SELFPAY ==
--- NOTE | 2022-10-08 10:16 | DI.ECHO.S_ITS ---
+ + Interpretation Summary The left ventricle is normal in size. Left ventricular systolic function appears normal without focal wall motion abnormalities. The ejection fraction is estimated to be 60-65%. Diastolic parameters suggest probable normal left ventricular diastolic function and normal filling pressures. The right ventricle is normal size. Right ventricular systolic function is at the lower limits of normal. The right ventricular systolic pressure is estimated to be at least 25 mmHg based on an estimated right atrial pressure of 3 mm Hg. The left atrium is mildly dilated. Right atrial size is normal. There is moderate mitral regurgitation. There is no other significant valvular heart disease. The aortic root is normal size. Procedure: A two-dimensional transthoracic echocardiogram with color flow and Doppler was performed. The study quality was technically adequate. There is no prior echocardiogram noted for this patient. The patient was in sinus rhythm with heart rates between 64-75 bpm during the exam. Left Ventricle: The left ventricle is normal in size. Proximal septal thickening is noted. Left ventricular systolic function appears normal without focal wall motion abnormalities. The ejection fraction is estimated to be 60- 65%. Diastolic parameters suggest probable normal left ventricular diastolic function and normal filling pressures. Right Ventricle: The right ventricle is normal size. Right ventricular systolic function is at the lower limits of normal. Atria: The left atrium is mildly dilated. Right atrial size is normal. There is no Doppler evidence for an interatrial shunt. Mitral Valve: The mitral valve is normal in structure and function. There is moderate mitral regurgitation. Aortic Valve: The aortic valve is trileaflet. The aortic valve opens well. There is no aortic valve stenosis. No aortic regurgitation is present. Tricuspid Valve: The tricuspid valve is normal in structure and function. There is mild tricuspid regurgitation. The right ventricular systolic pressure is estimated to be at least 25 mmHg based on an estimated right atrial pressure of 3 mm Hg. Pulmonic Valve: The pulmonic valve leaflets are thin and pliable; valve motion is normal. There is trace pulmonic regurgitation. There is no other significant valvular heart disease. Great Vessels: The aortic root is normal size. The dimensions of the ascending aorta are normal. The IVC is of normal diameter and collapses greater than 50% with a sniff. This suggests a low right atrial pressure of 3 mm Hg. Pericardium/ Pleura There is no pericardial effusion. There is no pleural effusion. MMode/2D Measurements & Calculations LVIDd: 5.1 cm LVOT diam: 2.2 cm LVIDs: 3.5 cm Ao root diam: 3.0 cm FS: 31.2 % asc Aorta Diam: 3.2 cm IVSd: 0.76 cm Ao Arch Diam (Prox Trans): 3.0 cm LVPWd: 0.76 cm LV fleming. diameter/BSA (cm/m^2): 2.9 LV sys. diameter/BSA (cm/m^2): 2.0 LA A2 area: 20.2 cm2 RA long axis: 4.8 cm LA A4 area: 23.8 cm2 RA area: 13.1 cm2 LA length (vol): 5.9 cm RA vol: 30.2 ml LA vol: 69.1 ml RA : 17.4 ml/m2 LA vol index: 40.0 ml/m2 IVC diam: 1.3 cm RVD1 (basal): 2.8 cm RVD2 (mid): 2.5 cm TAPSE: 1.6 cm Doppler Measurements & Calculations Ao V2 max: 136.8 cm/sec LVOT Max Luis: 137.5 cm/sec Ao V2 mean: 95.3 cm/sec LV V1 max P.6 mmHg Ao max P.5 mmHg LV V1 VTI: 29.5 cm Ao mean P.0 mmHg FANNY(I,D): 3.6 cm2 Ao V2 VTI: 30.5 cm FANNY(V,D): 3.8 cm2 sev ratio: 0.97 FANNY indexed to BSA (cm^2/m^2): 2.1 MV E max luis: 88.8 cm/sec TR max luis: 233.6 cm/sec MV A max luis: 83.4 cm/sec TR max P.8 mmHg MV E/A: 1.1 PA V2 max: 83.9 cm/sec Med Peak E' Luis: 6.8 cm/sec PA V2 mean: 59.9 cm/sec E/E' med: 13.0 PA mean P.6 mmHg Lat Peak E' Luis: 7.6 cm/sec PA pr(Accel): 10.5 mmHg E/E' lat: 11.7 E/e' average: 12.3 MV dec time: 0.18 sec MR ERO: 0.09 cm2 MR PISA: 1.5 cm2 SV(LVOT): 110.5 ml MR flow rate: 54.1 cm3/sec MR PISA radius: 0.48 cm Reading Physician:07:28 PM
== END ==
PROVIDERS: Family Provider Internal Medicine; PCP Internal Medicine; Referring Provider Internal Medicine; Visit Provider Internal Medicine
DX: I08.1 Rheumatic disorders of both mitral and tricuspid valves (principal); R06.09 Other forms of dyspnea; I10 Essential (primary) hypertension
CPT/HCPCS: 93306

== ENCOUNTER → 2023-05-16 15:27 | Outpatient (CLI) | payer MEDICARE, OTHER, SELFPAY ==
--- NOTE | 2023-05-21 10:19 | P.PFT.S_ITS ---
Pulmonary Function Test Referral & Results Date Patient Seen: 05/16/23 Results: The spirometry demonstrates an FVC of 2.22 L which is 60% of predicted. The FEV1 was measured at 1.96 L which is 79% of predicted. The FEV1/FVC ratio was 88 which is 114% of predicted. Following the administration of bronchodilator there was no notable change. Lung volumes show an SVC of 2.43 L which is 80% of predicted. The diffusing capacity was measured at 19.13 which is 74% of predicted. No hem oglobin value was provided, so no correction for potential anemia could be made, if appropriate. The maximum voluntary ventilation was normal Interpretation: This study demonstrates possibly very mild obstructive lung disease based on reduction FEV1 although FEV1/FVC ratio is preserved. In addition there is really no evidence of benefit following bronchodilator and shape a flow volume loop does not really support the presence of obstructive lung disease so careful clinical correlation is suggested There is a minimal reduction in lung volumes suggesting the presence of minimal restrictive lung disease which probably explains the minimal abnormality in the FEV1 above There is a mild to minimal reduction in diffusing capacity suggesting the presence of disease at the capillary alveolar level
== END ==
PROVIDERS: Family Provider Internal Medicine; PCP Internal Medicine; Referring Provider Internal Medicine; Visit Provider Internal Medicine
DX: R06.09 Other forms of dyspnea (principal)
CPT/HCPCS: 94060; 94726; 94729

== ENCOUNTER → 2023-06-11 15:46 | Outpatient (CLI) | payer MEDICARE, OTHER, SELFPAY ==
--- NOTE | 2023-06-11 | DI.RAD.S_ITS ---
PROCEDURE: XR CHEST 2V INDICATIONS: dyspnea on exertion TECHNIQUE: 2 views of the chest were acquired. COMPARISON: None. FINDINGS: Surgical changes and devices: None. Lungs and pleura: Lungs are clear. No pleural effusions or pneumothorax. Mediastinum: Mediastinal contours are normal. Heart size is normal. Bones and chest wall: No suspicious bony abnormalities. Soft tissues appear unremarkable. IMPRESSION: No acute cardiopulmonary findings. Dictated by: Tanja Zavaleta M.D. on 06/11/2023 at 17:18 Approved by: Tanja Zavaleta M.D. on 06/11/2023 at 17:18
== END ==
PROVIDERS: Family Provider Internal Medicine; PCP Internal Medicine; Referring Provider Internal Medicine; Visit Provider Internal Medicine
DX: R06.09 Other forms of dyspnea (principal)
CPT/HCPCS: 71046

== ENCOUNTER → 2024-01-26 15:30 | Outpatient (CLI) | payer MEDICARE, OTHER, SELFPAY ==
--- NOTE | 2024-01-26 15:32 | DI.MG.S_ITS ---
BILATERAL DIGITAL SCREENING MAMMOGRAM 3D/2D WITH CAD: 01/26/2024 CLINICAL: Routine screening. Comparison is made to exams dated: 08/07/2022 mammogram, 07/17/2021 mammogram, and 06/24/2020 mammogram - [facility]. Both breasts are heterogeneously dense, which may obscure small masses (category c / 51-75% glandular tissue). Current study was also evaluated with a Computer Aided Detection (CAD) system. No significant masses, calcifications, or other findings are seen in either breast. There has been no significant interval change. IMPRESSION: NEGATIVE There is no mammographic evidence of malignancy. A 1 year screening mammogram is recommended. Based on the Tyrer Cuzick model (a risk assessment model) the patient's lifetime risk is 5.4% and her 10 year risk is 2.8%. According to the ACR, ACS, and NCCN guidelines, an annual breast MRI exam along with mammogram is recommended if the patient's lifetime risk is 20% or greater. This exam was interpreted at Station ID: [id number]. NOTE: For mammograms, a report in lay terms will be sent to the patient. Approximately 15% of breast malignancies will not be visualized mammographically. In the management of a palpable breast mass, a negative mammogram must not discourage biopsy of a clinically suspicious lesion. Electronically Signed By: Joel herzog/shane:01/27/2024 09:54:42 letter sent: Normal Exam ACR BI-RADS Category 1: Negative 3341F
== END ==
LOC: MAMMO 15:31
PROVIDERS: Family Provider Internal Medicine; PCP Internal Medicine; Referring Provider Internal Medicine; Visit Provider Internal Medicine
DX: Z12.31 Encounter for screening mammogram for malignant neoplasm of breast (principal); R92.333 Mammographic heterogeneous density, bilateral breasts
CPT/HCPCS: 77063; 77067

== ENCOUNTER → 2024-10-08 12:34 | Outpatient (CLI) | payer MEDICARE, OTHER, SELFPAY ==
--- NOTE | 2024-10-08 12:35 | DI.ECHO.S_ITS ---
[facility] : : [id number] : [place] : : [id number] : : Phone: [phone] Echocardiogram Report + + :Name: MAURA NEAL Study Date: 10/08/2024 Height: 65 in : :[facility] ReadingLocation: Weight: 146 lb : : Gender: Female BSA: 1.7 m2 : :: 1955 Age: 69 yrs BP: 145/96 mmHg: :Reason For Study: NONRHEUMATIC MITRAL VALVE REGURGITATION : :Ordering Physician: KEVIN, : :PAMELA Performed By: Satish Markham : :Referring: PAMELA FRAGA : + + Interpretation Summary 1) Normal left ventricular thickness, size, wall motion, and systolic function (EF 60-65%). 2) Normal right ventricular size and function. 3) There is mild to moderate mitral regurgitation. 4) Compared to the Echo done 10/08/2022, no significant change when compared visually. Procedure: A two-dimensional transthoracic echocardiogram with color flow and Doppler was performed. The study quality was technically good. Comparison is made with the echocardiogram of 10/08/2022. The patient was in normal sinus rhythm during the exam. Left Ventricle: The left ventricle is normal in size. There is normal left ventricular wall thickness. There is no ventricular septal defect visualized. The ejection fraction is estimated to be 60-65%. There are no focal wall motion abnormalities. Diastolic parameters suggest a relaxation abnormality of the left ventricle, consistent with probable normal filling pressures. Right Ventricle: The right ventricle is normal in size and function. Atria: The left atrial size is normal. Right atrial size is normal. There is no Doppler evidence for an atrial septal defect. Mitral Valve: There is a flat closure plane of the the mitral valve leaflets. There is mild to moderate mitral regurgitation. Aortic Valve: The aortic valve is trileaflet. The aortic valve opens well. No aortic regurgitation is present. Tricuspid Valve: The tricuspid valve is normal in structure and function. There is mild tricuspid regurgitation. The right ventricular systolic pressure is estimated to be at least 29 mmHg based on an estimated right atrial pressure of 3 mm Hg. Pulmonic Valve: The pulmonic valve is normal in structure and function. There is trace pulmonic regurgitation. Great Vessels: The aortic root is normal size. The dimensions of the ascending aorta are normal. The pulmonary artery is normal size. The IVC is of normal diameter and collapses greater than 50% with a sniff. This suggests a low right atrial pressure of 3 mm Hg. Pericardium/ Pleura There is no pericardial effusion. There is no pleural effusion. MMode/2D Measurements & Calculations LVIDd: 4.5 cm LVOT diam: 2.1 cm LVIDs: 2.7 cm Ao root diam: 3.1 cm FS: 39.0 % asc Aorta Diam: 3.2 cm EPSS: 0.35 cm Ao Arch Diam (Prox Trans): 1.9 cm IVSd: 0.92 cm LVPWd: 0.82 cm LV fleming. diameter/BSA (cm/m^2): 2.6 LV sys. diameter/BSA (cm/m^2): 1.6 LA A2 area: 18.7 cm2 RA long axis: 4.1 cm LA A4 area: 16.7 cm2 RA area: 10.6 cm2 LA length (vol): 5.0 cm RA vol: 23.5 ml LA vol: 53.3 ml RA : 13.6 ml/m2 LA vol index: 30.8 ml/m2 IVC diam: 1.3 cm RVD1 (basal): 2.9 cm RVD2 (mid): 2.4 cm TAPSE: 2.5 cm Doppler Measurements & Calculations Ao V2 max: 163.9 cm/sec LVOT Max Luis: 125.4 cm/sec Ao V2 mean: 113.6 cm/sec LV V1 max P.3 mmHg Ao max P.8 mmHg LV V1 VTI: 27.7 cm Ao mean P.9 mmHg FANNY(I,D): 2.7 cm2 Ao V2 VTI: 35.0 cm FANNY(V,D): 2.6 cm2 sev ratio: 0.79 FANNY indexed to BSA (cm^2/m^2): 1.6 MV E max luis: 73.9 cm/sec TR max luis: 255.1 cm/sec MV A max luis: 67.1 cm/sec TR max P.0 mmHg MV E/A: 1.1 PA V2 max: 96.7 cm/sec Med Peak E' Luis: 5.9 cm/sec PA V2 mean: 61.1 cm/sec E/E' med: 12.6 PA mean P.8 mmHg Lat Peak E' Luis: 5.0 cm/sec PA pr(Accel): 10.5 mmHg E/E' lat: 14.9 E/e' average: 13.7 MV dec time: 0.20 sec MR ERO: 0.10 cm2 MR PISA: 1.5 cm2 SV(LVOT): 95.2 ml MR flow rate: 56.9 cm3/sec MR PISA radius: 0.50 cm Reading Physician:03:25 PM
== END ==
PROVIDERS: Family Provider Internal Medicine; PCP Internal Medicine; Referring Provider Internal Medicine Cardiovascular Disease; Visit Provider Internal Medicine Cardiovascular Disease
DX: I08.1 Rheumatic disorders of both mitral and tricuspid valves (principal)
CPT/HCPCS: 93306

== ENCOUNTER → 2025-02-17 13:17 | Outpatient (CLI) | payer MEDICARE, OTHER, SELFPAY ==
--- NOTE | 2025-02-17 13:18 | DI.MG.S_ITS ---
MM screening mammo BI: 02/17/2025. BI-RADS: 1 CLINICAL: 69-year old female for bilateral screening mammogram. Tyrer-Cuzick lifetime risk of 4.0%. No personal or first-degree family history of breast cancer. PRIOR EXAMS 01/26/2024, 08/07/2022, 07/17/2021, 01/11/2021, 07/18/2020, 06/24/2020, 02/15/2019, 01/13/2018, 12/03/2016, 11/27/2015. MAMMOGRAPHY TECHNIQUE: 2D and 3D (tomosynthesis) digital mammographic views obtained, with additional images as needed for full coverage. Current study was also evaluated with a Computer Aided Detection (CAD) system. DENSITY C. The breasts are heterogeneously dense, which may obscure small masses. MAMMOGRAPHY FINDINGS Bilateral: No suspicious mass, asymmetry, microcalcification, or other abnormality seen. No significant change from comparison. IMPRESSION: * No evidence of malignancy. RECOMMENDATIONS Bilateral * Annual screening mammography. OVERALL ASSESSMENT CATEGORY BI-RADS-1: Negative. The [employer] recommends annual screening mammography beginning at age 40 for women with average risk of breast cancer. ELECTRONICALLY SIGNED: Leigh Bello M.D. on 02/17/2025 at 04:35:19 PM PT Interpreting Station ID: [id number]
== END ==
PROVIDERS: Family Provider Internal Medicine; PCP Registered Nurse; Referring Provider Registered Nurse; Visit Provider Registered Nurse
DX: Z12.31 Encounter for screening mammogram for malignant neoplasm of breast (principal); R92.333 Mammographic heterogeneous density, bilateral breasts
CPT/HCPCS: 77063; 77067